=== PATIENT | male | born 1940 | race Caucasian/White ===

== ENCOUNTER 2017-11-01 13:05 | Emergency (ER) | payer MEDICARE | END 2017-11-01 14:38 | disposition home or self-care (01) | LOC: M ED 13:05 | DX: H11.441 Conjunctival cysts, right eye (principal); I10 Essential (primary) hypertension; J44.9 Chronic obstructive pulmonary disease, unspecified; K21.9 Gastro-esophageal reflux disease without esophagitis; Z88.1 Allergy status to other antibiotic agents; F17.210 Nicotine dependence, cigarettes, uncomplicated | CPT/HCPCS: 99283 ==

== ENCOUNTER 2020-04-06 03:28 | Emergency (ER) | payer MEDICARE, SELFPAY ==
[~2020-04-06] VITALS: Ht 170.2 cm; Wt 45.5 kg
[~2020-04-06 03:28] MED LIST: ALBU0.084 INH; ALBUPOW9 XX; BENZ100C5 PO; CLOP75TA2 PO; ESCI10TA16; LOPR50TA PO; NITR0.4S SL; NORCOBULK PO; PAXI10TA2 PO; PRED20TA PO; PROT1TAB2 PO; VENTAER IN; ZEST2.5T3 PO; vitamin e PO
[2020-04-06] MEDS ORDERED: HEPARIN SOD (PORCINE) 5000UNITS/ML 1ML VIAL/SYRINGE IV ONE ×3 (04:00→04:45)
[2020-04-06] MEDS ORDERED: CLOPIDOGREL 300 MG TAB (PLAVIX) PO STA (04:11)
[2020-04-06 04:12] LABS: BASO % 0.1 % (0.0-1.0); EOS # 0.1 10^3/uL (0.0-0.5); EOS % 0.7 % (0.0-3.0); HEMATOCRIT 45.3 % (42.0-52.0); HEMOGLOBIN 13.4 g/dl (13.5-17.5); LYMPH # 1.9 10^3/uL (1.5-5.0); MEAN CORPUSCULAR HEMOGLOBIN 29.5 pg (27.0-33.0); MEAN CORPUSCULAR HGB CONC 29.6 g/dl (32.0-36.5); MEAN CORPUSCULAR VOLUME 99.8 fl (80.0-96.0); MONO # 0.7 10^3/uL (0.0-0.8); MONO % 6.9 % (0.0-5.0); NEUTROPHILS # 7.7 10^3/uL (1.5-8.5); NEUTROPHILS % 73.8 % (36.0-66.0); PLATELET COUNT, AUTOMATED 286 10^3/uL (150-450); RED BLOOD COUNT 4.54 10^6/uL (4.30-6.10); WHITE BLOOD COUNT 10.4 10^3/uL (4.0-10.0)
[2020-04-06] MEDS ORDERED: HEPARIN DRIP 25,000 UNITS in IV 1 EA IV SCH ×2 (04:14→04:44)
[2020-04-06] MEDS ORDERED: ASPIRIN 81 MG CHEW TABLET PO ONE (04:15)
[2020-04-06] MEDS ORDERED: HEPARIN SOD (PORCINE) 5000UNITS/ML 1ML VIAL/SYRINGE IV PRN ×2 (04:15→04:45)
[2020-04-06] MEDS ORDERED: TENECTEPLASE 50 MG KIT (TNKase) (J3101 PER 1MG) IV ONE (04:15)
[2020-04-06] MEDS: MORPHINE 2 MG/ML 1ML VIAL (J2270) IV PRN ×2 (04:17→04:46)
[2020-04-06] MEDS: NITROGLYCERIN 0.4 MG SUBL TABLET SL PRN ×3 (04:18→04:34)
[2020-04-06] MEDS ORDERED: TENECTEPLASE 50 MG KIT (TNKase) (J3101 PER 1MG) As Ordered ONE (04:19)
[2020-04-06 04:32] LABS: INR 0.93; PROTHROMBIN TIME 12.7 SECONDS (12.5-14.3)
[2020-04-06 04:33] LABS: PARTIAL THROMBOPLASTIN TIME 34.3 SECONDS (24.2-38.5)
[2020-04-06 04:34] VITALS: BP 114/81
[2020-04-06 04:55] LABS: ALBUMIN 2.2 GM/DL (3.2-5.2); ALT/SGPT < 6 U/L (12-78); BILIRUBIN,DIRECT 0.1 MG/DL (0.0-0.2); BILIRUBIN,TOTAL 0.4 MG/DL (0.2-1.0); BLOOD UREA NITROGEN 12 MG/DL (7-18); CALCIUM LEVEL 5.2 MG/DL (8.8-10.2); CARBON DIOXIDE LEVEL 26 MEQ/L (21-32); CHLORIDE LEVEL 121 MEQ/L (98-107); CK-MB VALUE MASS 25.2 NG/ML (<3.6); CPK CREATINE PHOSPHOKINASE 141 U/L (39-308); CREATININE FOR GFR 0.31 MG/DL (0.70-1.30); GLOMERULAR FILTRATION RATE > 60.0 (>42); GLUCOSE, FASTING 90 MG/DL (70-100); LIPASE 93 U/L (73-393); MB/CK RELATIVE INDEX 17.87 (< OR =4); POTASSIUM SERUM 2.8 MEQ/L (3.5-5.1); SODIUM LEVEL 151 MEQ/L (136-145); THYROID STIMULATING HORMONE 0.371 uIU/ML (0.358-3.740); TOTAL PROTEIN 3.7 GM/DL (6.4-8.2); TROPONIN I 3.44 NG/ML (< 0.10)
[2020-04-06 05:10] VITALS: BP 138/79
--- NOTE | 2020-04-06 05:25 | REPVR ---
PROCEDURE INFORMATION: Exam: XR Chest, 1 View Exam date and time: 04/06/2020 4:25 AM Age: 79 years old Clinical indication: Other: Chest pain TECHNIQUE: Imaging protocol: XR of the chest Views: 1 view. COMPARISON: CR Chest, 1 view 01/31/2017 3:34 AM FINDINGS: Lungs: Hyperinflated lungs representing COPD. Pleural space: In the right CP angle, and adjacent right lateral chest wall there is asymmetrical lucency new from prior study, pneumothorax cannot be completely excluded, further evaluation with decubitus view right-sided up is recommended. Heart/Mediastinum: Unremarkable. No cardiomegaly. Bones/joints: Unremarkable. IMPRESSION: In the right CP angle, and adjacent right lateral chest wall there is asymmetrical lucency new from prior study, pneumothorax cannot be completely excluded, further evaluation with decubitus view right-sided up is recommended. Electronically signed by: Shante Scott On 04/06/2020 05:25:37 AM
--- NOTE | 2020-04-06 13:36 | ECGEPIP ---
[facility] - ED Test Date: 2020-04-06 Pat Name: LISA MELTON Department: Room: - Gender: Male Script Writer: peng : 1940 Requested By: STEPHANIE Davalos Order Number: [id number] Reading MD: Cassandra Luz Measurements Intervals [place] Rate: 110 P: 82 MA: 131 QRS: -73 QRSD: 76 T: 84 QT: 290 QTc: 392 Interpretive Statements SINUS TACHYCARDIA LEFT ATRIAL ENLARGEMENT LOW QRS VOLTAGE IN PRECORDIAL LEADS POSSIBLE RIGHT VENTRICULAR CONDUCTION DELAY LEFT ANTERIOR FASCICULAR BLOCK ANTERIOR ACUTE IN Electronically Signed on 04-06-2020 13:36:24 EST by Cassandra Luz
== END 2020-04-06 05:14 | disposition short-term general hospital (02) ==
LOC: M ED 03:28
DX: I21.09 ST elevation (STEMI) myocardial infarction involving other coronary artery of anterior wall (principal); I10 Essential (primary) hypertension; J44.9 Chronic obstructive pulmonary disease, unspecified; Z99.81 Dependence on supplemental oxygen; K21.9 Gastro-esophageal reflux disease without esophagitis; Z85.46 Personal history of malignant neoplasm of prostate; Z87.440 Personal history of urinary (tract) infections; F17.210 Nicotine dependence, cigarettes, uncomplicated; Z88.1 Allergy status to other antibiotic agents
CPT/HCPCS: 71045; 80048; 80076; 82550; 82553; 83690; 84443; 84484; 85025; 85610; 85730; 93005; 93041; 94760; 96374; 96375; 96376; 99285; J1644; J2270; J3101; U0002

== ENCOUNTER 2020-05-11 14:50 | Emergency (ER) | payer MEDICARE ==
[~2020-05-11] VITALS: Ht 170.2 cm; Wt 47.7 kg
--- OUTSIDE RECORDS SUMMARY | 2020-05-11 14:56 | CCD ---
Author Author [facility] Organization [facility] Address Unknown Phone Unavailable Care Team Providers Care Mantel Craftsman Name Role Phone Ivan Crowley MD Unavailable Unavailable Ivan Crowley MD Unavailable Unavailable Ivan Crowley MD Unavailable Unavailable Ivan Crowley MD Unavailable Unavailable Ivan Crowley MD Unavailable Unavailable Ivan Crowley MD Unavailable Unavailable Ivan Crowley MD Unavailable Unavailable Ivan Crowley MD Unavailable Unavailable Ivan Crowley MD Unavailable Unavailable Ivan Crowley MD Unavailable Unavailable Ivan Crowley MD Unavailable Unavailable Ivan Crowley MD Unavailable Unavailable Ivan Crowley MD Unavailable Unavailable Ivan Crowley MD Unavailable Unavailable Ivan Crowley MD Unavailable Unavailable Ivan Crowley MD Unavailable Unavailable Ivan Crowley MD Unavailable Unavailable Ivan Crowley MD Unavailable Unavailable Ivan Crowley MD Unavailable Unavailable Ivan Crowley MD Unavailable Unavailable Ivan Crowley MD Unavailable Unavailable Ivan Crowley MD Unavailable Unavailable Ivan Crowley MD Unavailable Unavailable Ivan Crowley MD Unavailable Unavailable Ivan Crowley MD Unavailable Unavailable Ivan Crowley MD Unavailable Unavailable Ivan Crowley MD Unavailable Unavailable Ivan Crowley MD Unavailable Unavailable Ivan Crowley MD Unavailable Unavailable Ivan Crowley MD Unavailable Unavailable Ivan Crowley MD Unavailable Unavailable Ivan Crowley MD Unavailable Unavailable Ivan Crowley MD Unavailable Unavailable Ivan Crowley MD Unavailable Unavailable Ivan Crowley MD Unavailable Unavailable Ivan Crowley MD Unavailable Unavailable Ivan Crowley MD Unavailable Unavailable Ivan Crowley MD Unavailable Unavailable Ivan Crowley MD Unavailable Unavailable Ivan Crowley MD Unavailable Unavailable Ivan Crowley MD Unavailable Unavailable Ivan Crowley MD Unavailable Unavailable Ivan Crowley MD Unavailable Unavailable Ivan Crowley MD Unavailable Unavailable Ivan Crowley MD Unavailable Unavailable Ivan Crowley MD Unavailable Unavailable Ivan Crowley MD Unavailable Unavailable Ivan Crowley MD Unavailable Unavailable Ivan Crowley MD Unavailable Unavailable Ivan Crowley MD Unavailable Unavailable Ivan Crowley MD Unavailable Unavailable Ivan Crowley MD Unavailable Unavailable Ivan Crowley MD Unavailable Unavailable Ivan Crowley MD Unavailable Unavailable Ivan Crowley MD Unavailable Unavailable Ivan Crowley MD Unavailable Unavailable Ivan Crowley MD Unavailable Unavailable Ivan Crowley MD Unavailable Unavailable MALINDA FOLEY Unavailable Unavailable MALINDA FOLEY Unavailable Unavailable MALINDA FOLEY Unavailable Unavailable MALINDA FOLEY Unavailable Unavailable MALINDA FOLEY Unavailable Unavailable MALINDA FOLEY Unavailable Unavailable Verbeck Jr, Perquimans Ronak PA Unavailable Unavailable Verbeck Jr, Perquimans Ronak PA Unavailable Unavailable Verbeck Jr, Perquimans Ronak PA Unavailable Unavailable Verbeck Jr, Perquimans Ronak PA Unavailable Unavailable Verbeck Jr, Perquimans Ronak PA Unavailable Unavailable Verbeck Jr, Perquimans Ronak PA Unavailable Unavailable Verbeck Jr, Perquimans Ronak PA Unavailable Unavailable Verbeck Jr, Perquimans Ronak PA Unavailable Unavailable Verbeck Jr, Jaziel Ronak PA Unavailable Unavailable Verbeck Jr, Perquimans Ronak PA Unavailable Unavailable Verbeck Jr, Perquimans Ronak PA Unavailable Unavailable Verbeck Jr, Perquimans Ronak PA Unavailable Unavailable Verbeck Jr, Perquimans Ronak PA Unavailable Unavailable Verbeck Jr, Jaziel Ronak PA Unavailable Unavailable Verbeck Jr, Perquimans Ronak PA Unavailable Unavailable Verbeck Jr, Jaziel Ronak PA Unavailable Unavailable Verbeck Jr, Perquimans Ronak PA Unavailable Unavailable Verbeck Jr, Perquimans Ronak PA Unavailable Unavailable Verbeck Jr, Perquimans Ronak PA Unavailable Unavailable Verbeck Jr, Perquimans Ronak PA Unavailable Unavailable Verbeck Jr, Perquimans Ronak PA Unavailable Unavailable Verbeck Jr, Perquimans Ronak PA Unavailable Unavailable Verbeck Jr, Perquimans Ronak PA Unavailable Unavailable Verbeck Jr, Perquimans Ronak PA Unavailable Unavailable Verbeck Jr, Perquimans Ronak PA Unavailable Unavailable Verbeck Jr, Perquimans Ronak PA Unavailable Unavailable Verbeck Jr, Perquimans Ronak PA Unavailable Unavailable Verbeck Jr, Jaziel Ronak PA Unavailable Unavailable Verbeck Jr, Perquimans Ronak PA Unavailable Unavailable Verbeck Jr, Jaziel Ronak PA Unavailable Unavailable Verbeck Jr, Perquimans Ronak PA Unavailable Unavailable Verbeck Jr, Perquimans Ronak PA Unavailable Unavailable Verbeck Jr, Jaziel Ronak PA Unavailable Unavailable Re-disclosure Warning The records that you are about to access may contain information from federally-assisted alcohol or drug abuse programs. If such information is present, then the following federally mandated warning applies: This information has been disclosed to you from records protected by federal confidentiality rules (42 CFR part 2). The federal rules prohibit you from making any further disclosure of this information unless further disclosure is expressly permitted by the written consent of the person to whom it pertains or as otherwise permitted by 42 CFR part 2. A general authorization for the release of medical or other information is NOT sufficient for this purpose. The Federal rules restrict any use of the information to criminally investigate or prosecute any alcohol or drug abuse patient.The records that you are about to access may contain highly sensitive health information, the redisclosure of which is protected by Article 27-F of the [facility] Public Health law. If you continue you may have access to information: Regarding HIV / AIDS; Provided by facilities licensed or operated by the [facility] Office of Mental Health; or Provided by the [facility] Office for People With Developmental Disabilities. If such information is present, then the following [facility] mandated warning applies: This information has been disclosed to you from confidential records which are protected by state law. State law prohibits you from making any further disclosure of this information without the specific written consent of the person to whom it pertains, or as otherwise permitted by law. Any unauthorized further disclosure in violation of state law may result in a fine or care home sentence or both. A general authorization for the release of medical or other information is NOT sufficient authorization for further disc losure. Allergies and Adverse Reactions Type Description Substance Reaction Status Data Source(s ) Propensity to adverse reactions TAMSULOSIN HCL Tamsulosin Hcl Shortness Of Breath High Active [facility] High Propensity to adverse reactions BEE VENOM Honey bee venom Active [facility] Family History Family Member Name Family Member Gender Family Member Status Date o f Status Description Data Source(s) Unknown Male Problem [facility] ([facility] () Encounters Encounter Providers Location Date Indications Data Source(s ) Outpatient Attender: Ivan AKHTAR.VISHAL-SJSONIA 04/07 12:00:00 AM EST - 04/19/2020 01:53:07 PM EST [facility] Inpatient Attender: ROSALINE FOLEYAdmitter: ROSALINE FOLEY ES1 -[id number] 04/06/2020 07:48:51 AM EST - 04/09/2020 03:11:00 PM EST [facility] Patient discharged. Outpatient Attender: Ronak Camacho [facility] Office 12/2019 10:00:00 AM EDT MEDMICHAEL ([facility] Immunizations Vaccine Date Status Description Data Source(s) New in 2011. IIV4 04/06/2020 12:00:00 AM EST completed Fl u Vaccine =>6MOS Quad Pres-Free 04/06/2020 (Deferred: Patient Refused) [facility] Deferred: Patient Refused pneumococcal polysaccharide PPV23 04/06/2020 12:00:00 AM EST com pleted Pneumococcal Polysaccharide (aka Pneumovax 23) 04/06/2020 () [facility] Medications Medication Brand Name Start Date Product Form Dose Route Admi nistrative Instructions Pharmacy Instructions Status Indications Reaction Description Data Source(s) 24 HR Nicotine 0.583 MG/HR Transdermal Patch nicotine (NICODERM CQ) 14 MG/24HR nicotine (NICODERM CQ) 14 MG/24HR 04/19/2020 12:00:00 AM EST 1 { patch} Transdermal active Place 1 patch on t he skin daily [facility] Albuterol 0.833 MG/ML / Ipratropium Brom anna 0.167 MG/ML Inhalant Solution ipratropium-albuterol (DUO-NEB) 0.5-2.5 mg/mL nebulizer ipratropium-albuterol (DUO-NEB) 0.5-2.5 mg/mL nebulizer 04/14/2020 12:00:00 AM EST active [facility] Aspirin 81 MG Chewable Tablet aspirin 81 MG chewable t ablet aspirin 81 MG chewable tablet 04/10/2020 12:00:00 AM EST 81 mg Oral ac tive Chew 1 tablet (81 mg total) daily [facility] clopidogrel 75 MG Oral Tablet clopidogrel (PLAVIX) 75 MG tablet clopidogrel (PLAVIX) 75 MG tablet 04/10/2020 12:00:00 AM EST 75 mg Oral active Take 1 tablet (75 mg total) by mouth daily [facility] 25 mg 04/09/2020 12:00:00 AM EST tablet 60 TAKE ONE TABLET BY MOUTH TWICE A DAY TAKE ONE TABLET BY MOUTH TWICE A DAY SOLD: 04/09/2020 [facility] atorvastatin 40 MG Oral Tablet ATORVASTATIN CALCIUM 04/09/2020 1 2:00:00 AM EST tablet 30 TAKE ONE TABLET BY MOUTH NIGHTLY TAKE ONE TABLET BY MOUTH NIGHTLY SOLD: 04/09/2020 [facility] 0.4 mg 04/09/2020 12:00:00 AM EST tablet, sublingual [address] PLACE ONE TABLET UNDER THE TONGUE EVERY 5 MINUTES NEEDED FOR CHEST PAIN PLACE ONE TABLET UNDER THE TONGUE EVERY 5 MINUTES NEEDED FOR CHEST PAIN SOLD: 04/09/2020 [facility] atorvastatin 40 MG Oral Tablet atorvastatin (LIPITOR) 40 MG tablet atorvastatin (LIPITOR) 40 MG tablet 04/09/2020 12:00:00 AM EST 40 mg Oral active Take 1 tablet (40 mg total) by mouth nightly [facility] albuterol (PROVENTIL HFA;VENTOLIN HFA) 108 (90 Base) M CG/ACT inhaler 4323-5145-01 04/09/2020 12:00:00 AM EST 2 {puff} Inhalation active Inhale 2 puffs every 4 (four) hours as needed for wheezing [facility] Nitroglycerin 0.4 MG Sublingual Tablet n itroglycerin (NITROSTAT) 0.4 MG SL tablet nitroglycerin (NITROSTAT) 0.4 MG SL tablet 04/09/2020 12:00:00 A M EST 0.[address] 1 t ablet (0.4 mg total) under the tongue every 5 (five) minutes as needed for chest pain [facility] Metoprolol Tartrate 25 MG Oral Tablet me toprolol tartrate (LOPRESSOR) 25 MG tablet metoprolol tartrate (LOPRESSOR) 25 MG tablet 04/09/2020 12:0 0:00 AM EST 25 mg Oral active Take 1 tablet (2 5 mg total) by mouth 2 (two) times a day [facility] 90 mcg/actuation 04/09/2020 12:00:00 AM EST HFA aerosol inha ler 8 INHALE TWO PUFFS BY MOUTH EVERY 4 HOURS NEEDED FOR WHEEZING INHALE TWO PUFFS BY MOUTH EVERY 4 HOURS NEEDED FOR WHEEZING SOLD: 04/09/2020 [facility] 75 mg 04/09/2020 12:00:00 AM EST tablet 30 TAKE ONE TABLET BY MOUTH EVERY DAY TAKE ONE TABLET BY MOUTH EVERY DAY SOLD: 04/09/2020 [facility] Metoprolol Tartrate 25 MG Oral Tablet me toprolol tartrate (LOPRESSOR) tablet 25 mg metoprolol tartrate (LOPRESSOR) tablet 25 mg 04/08/2020 09:00:00 PM EST 25 mg Oral active 25 mg, Ora l, 2 times daily, First dose on Fri04/08/20 at 2100 [facility] Medication administered onsite atorvastatin 40 MG Oral Tablet atorvastatin (LIPITOR) tablet 40 mg atorvastatin (LIPITOR) tablet 40 mg 04/07/2020 09:00:00 PM EST 40 mg Oral active 40 mg, Oral, Nightly, First dose on Fri04/07/20 at 2100 [facility] Medication administered onsite clopidogrel 75 MG Oral Tablet clopidogrel (PLAVIX) tab let 75 mg clopidogrel (PLAVIX) tablet 75 mg 04/07/2020 09:00:00 AM EST 75 mg Oral active 75 mg, Oral, Daily, First dose on Fri04/07/20 at 0900 [facility] Medication administered onsite atorvastatin 80 MG Oral Tablet atorvastatin (LIPITOR) tablet 80 mg atorvastatin (LIPITOR) tablet 80 mg 04/06/2020 09:00:00 PM EST 80 mg Oral aborted 80 mg, Oral, Nightly, First dose on [facility] 04/06/20 at 2100 [facility] Medication administered onsite Albuterol 0.833 MG/ML / Ipratropium Brom anna 0.167 MG/ML Inhalant Solution ipratropium-albuterol (DUO-NEB) 0.5-2.5 mg/mL nebulizer solution 3 mL ipratropium-albuterol (DUO-NEB) 0.5-2.5 mg/mL nebulizer solution 3 mL 04/06/2020 02:00:00 PM EST 3 mL Inhalation active 3 mL, Inhalation, 3 times daily, First dose on [facility] 04/06/20 at 1400 [facility] Medication administered onsite Metoprolol Tartrate 25 MG Oral Tablet me toprolol tartrate (LOPRESSOR) tablet 12.5 mg metoprolol tartrate (LOPRESSOR) tablet 12.5 mg 020 12:00:00 PM EST 12.5 mg Oral aborted 12.5 mg, Oral, 2 times daily, First dose on [facility] 04/06/20 at 1200 [facility] Medication administered onsite Albuterol 0.83 MG/ML Inhalant Solution a lbuterol (PROVENTIL) nebulizer solution 2.5 mg albuterol (PROVENTIL) nebulizer solution 2.5 mg 2019 11:19:45 AM EST 2.5 mg active 2.5 mg, Nebulization, Every 2 hour PRN, wheezing, shortness of breath, Starting [facility] 04/06/20 at 1119 [facility] Medication administered onsite sodium chloride 0.9% (NS) infusion 9944-7363-10 04/06/2020 10:00:00 AM EST 100 mL/h Intravenous aborted at 100 m L/hr, 100 mL/hr, Intravenous, Continuous, Starting [facility] 04/06/20 at 1000, Pre-op
Start two hours prior to scheduled start time
[facility] Medication administered onsite 500 ML heparin sodium, porcine 50 UNT/ML Injection heparin infusion 25,000 units in 500 mL 0.45% NaCl heparin infusion 25,000 units in 500 mL 0.45% NaCl 04/06/2020 10:00:00 AM EST 12 U/kg/h Intravenous aborted 12 Units/kg/hr 63.5 kg (15.24 mL/hr, rounded to 15.2 mL/hr), Intravenous, at 15.2 mL/hr, Continuous, Starting [facility] 04/06/20 at 1000
For Cardiac/BridgeaPTT (seconds) Heparin Dose (weight based)< 34 Bolus: 60 units/kg IV (Maximum bolus: 5,000 units) and increase infusion 3 units/kg/hr IV34 - 50 Bolus: 30 units/kg IV (Maximum bolus: 5,000 units) and increase infusion 2 units/kg/hr IV50.1 - 58 No bolus. Increase infusion 1 unit/kg/hr IV58.1 - 87 Therapeutic, No Jqpeyd69.1 - 97 Decrease infusion 1 unit/kg/hr IV 97.1 - 110Hold infusion for 30 minutes & decrease infusion 2 units/kg/hr IV> 110 Call MD if patient is bleeding. Hold infusion for 60 minutes & decrease infusion 3 units/kg/hr IVInitial heparin IV infusion rate:Do not exceed 1000 units/hr or 12 units/kg/hr initially (whichever is less)Infuse this medication only through single port tubing (SmartSite Infusion Set ref [id number]). Medication and tubing is to be discarded if infusion off for 4 hours.
[facility] Medication administered onsite Acetaminophen 325 MG Oral Tablet acetaminophen (TYLENO L) 325 MG tablet 650 mg acetaminophen (TYLENOL) 325 MG tablet 650 mg 04/06/2020 09:23:03 AM EST 650 mg Oral active 650 mg, Or al, Every 4 hours PRN, headaches, and non cardiac pain, Starting [facility] 04/06/20 at 0923, Pre-op
"Maximum dose of acetaminophen is 4,000 mg from all sources in 24 hours."
[facility] Medication administered onsite potassium chloride (KLOR-CON) packet 40 mEq 0199-7442-83 04/06/2020 09:00:00 AM EST 40 meq Oral completed 40 mEq , Oral, Once, [facility] 04/06/20 at 0900, For 1 dose [facility] Medication administered onsite 500 ML heparin sodium, porcine 50 UNT/ML Injection heparin infusion 25,000 units in 500 mL 0.45% NaCl heparin infusion 25,000 units in 500 mL 0.45% NaCl 04/06/2020 09:00:00 AM EST 12 U/kg/h Intravenous aborted 12 Units/kg/hr, Intravenous, Continuous, Starting [facility] 04/06/20 at 0900
For Cardiac/BridgeaPTT (seconds) Heparin Dose (weight based)< 34 Bolus: 60 units/kg IV (Maximum bolus: 5,000 units) and increase infusion 3 units/kg/hr IV34 - 50 Bolus: 30 units/kg IV (Maximum bolus: 5,000 units) and increase infusion 2 units/kg/hr IV50.1 - 58 No bolus. Increase infusion 1 unit/kg/hr IV58.1 - 87 Therapeutic, No Nnwuvz14.1 - 97 Decrease infusion 1 unit/kg/hr IV 97.1 - 110Hold infusion for 30 minutes & decrease infusion 2 units/kg/hr IV> 110 Call MD if patient is bleeding. Hold infusion for 60 minutes & decrease infusion 3 units/kg/hr IVInitial heparin IV infusion rate:Do not exceed 1000 units/hr or 12 units/kg/hr initially (whichever is less)Infuse this medication only through single port tubing (SmartSite Infusion Set ref [id number]). Medication and tubing is to be discarded if infusion off for 4 hours.
[facility] Medication administered onsite Aspirin 81 MG Chewable Tablet aspirin chewable tablet 81 mg aspirin chewable tablet 81 mg 04/06/2020 09:00:00 AM EST 81 mg Oral activ e 81 mg, Oral, Daily, First dose on [facility] 04/06/20 at 0900 [facility] Medication administered onsite Nitroglycerin 0.4 MG Sublingual Tablet n itroglycerin (NITROSTAT) SL tablet 0.4 mg nitroglycerin (NITROSTAT) SL tablet 0.4 mg 04/06/2020 08:05:03 A M EST 0.4 mg Sublingual active 0.4 mg, S ublingual, Every 5 min PRN, chest pain, Starting [facility] 04/06/20 at 0805
May administer up to 3 doses per episode.
[facility] Medication administered onsite 1 ML heparin sodium, porcine 1000 UNT/ML Injection heparin (porcine) injection 100-5,000 Units heparin (porcine) injection 100-5,000 Units 04/06/2020 08:02:04 AM EST Intravenous active 100- 5,000 Units, Intravenous, As needed, other, Starting [facility] 04/06/20 at 0802
Round dose to nearest 100 unitsaPTT:< 34 Bolus: 60 units/kg IV (Maximum bolus: 5,000 units) 34 - 50 Bolus: 30 units/kg IV (Maximum bolus: 5,000 units)
[facility] Medication administered onsite Tamsulosin hydrochloride 0.4 MG Oral Capsule tamsulosi n (FLOMAX) 0.4 MG CAPS tamsulosin (FLOMAX) 0.4 MG CAPS 0.4 mg Oral aborte d Take 0.4 mg by mouth daily [facility] Insurance Providers Payer name Policy type / Coverage type Policy ID Covered constitution party ID Covered constitution party's relationship to de paz Policy [place] Plan Information AETNA MEDICARE [id number] SP [id number] AETNA MEDICARE [id number] Susana MEBRY 7XV MEDICARE C [id number] S [id number] AETNA MEDICARE Medicare [id number] MEDICARE [id number] SP [id number] SELF PAY ONLY [id number] SP [id number] MEDICARE COMPLETE [id number] SP [id number] [facility] Commercial [id number] Self [id number] MEDICARE COMPLETE-[facility] O [id number] S [id number] MEDICARE COMPLETE [id number] SP [id number] Problems, Conditions, and Diagnoses Code Display Name Description Problem Type Effective Dates Data Source(s) E78.00 Pure hypercholesterolemia Pure hypercholesterolemia 64 [id number] 04/19/2020 12:00:00 AM EST [facility] I25.119 Coronary artery disease invo lving [place] coronary artery of [place]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 pectoris Coronary artery disease involving [place] coronary artery of [place]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 pectoris [id number] 04/19/2020 12:00:00 AM EST [facility] I10 HTN (hypertension) HTN (hypertension) [id number] 0 12:00:00 AM [facility] J44.9 COPD (chronic obstructive pulmonary dise ase) COPD (chronic obstructive pulmonary disease) [id number] 04/06/2020 12:00:00 AM [facility] I21.09 Acute anterior wall KS Acute anterior wall KS [id number] 04/06/2020 12:00:00 AM [facility] E78.00 Pure hypercholesterolemia, unspecified P ure hypercholesterolemia, unspecified Diagnosis 04/19/2020 01:09:04 PM [facility] I10 Essential (primary) hypertension Essential (primary) h ypertension Diagnosis 04/19/2020 01:09:04 PM [facility] I25.119 Atherosclerotic heart diseas e of [place] coronary artery with unspecified angina pectoris Atherosclerotic heart disease of [place] Diagnosis 04/19/2020 01:09:04 PM [facility] J43.9 Emphysema, unspecified Emphysema, unspecified Diagnosi s 04/06/2020 07:48:51 AM [facility] I21.09 ST elevation (STEMI) myocard ial infarction involving other coronary artery of anterior wall ST elevation (STEMI) myocardial infarcti Diagnosis 04/06/2020 07:48:51 AM [facility] I21.3 ST elevation (STEMI) myocardial infarcti on of unspecified site ST elevation (STEMI) myocardial infarcti Diagnosis 04/06/2020 07:48:51 AM [facility] Surgeries/Procedures Procedure Description Date Indications Data Source(s) ECG ROUTINE ECG W/LEAST 12 LDS W/I&R POCT AMB EKG Routine 04/19/2020 1:31 PM EST Coronary artery disease involving [place] coronary artery of [place]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 pectoris 04/19/2020 06:31:00 PM EST Coronary dylan ry disease involving [place] coronary artery of [place]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 pectoris [facility] Coronary artery disease involving [place] coronary artery of [place]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 pectoris BLOOD COUNT COMPLETE AUTOMATED CBC Routine 04/08/2020 4:31 A M EST 04/08/2020 09:31:00 AM EST [facility] BASIC METABOLIC PANEL CALCIUM TOTAL BASIC METABOLIC PANEL Routi ne 04/08/2020 4:31 AM EST 04/08/2020 09:31:[address] [facility] ECHO TTHRC R-T 2D W/WOM-MODE COMPL SPEC&COLR DOP ECHOCARDIO GRAM TRANSTHORACIC Routine 04/07/2020 11:59 AM EST 04/07/2020 04:59:49 PM [facility] BLOOD COUNT COMPLETE AUTOMATED CBC Routine 04/07/2020 7:54 A M EST 04/07/2020 12:54:00 PM [facility] BASIC METABOLIC PANEL CALCIUM TOTAL BASIC METABOLIC PANEL Routi ne 04/07/2020 7:54 AM EST 04/07/2020 12:54:[address] [facility] TROPONIN QUANTITATIVE TROPONIN I STAT 04/06/2020 8:15 PM EST 04/07/2020 01:15:00 AM [facility] ECG ROUTINE ECG W/LEAST 12 LDS TRCG ONLY W/O I&R ECG 12-LEAD Routine 04/06/2020 12:16 PM EST 04/06/2020 05:16:[address] [facility] CMB CMB STAT 04/06/2020 11:47 AM EST 04/06/20 20 04:47:00 PM [facility] TROPONIN QUANTITATIVE TROPONIN I Routine 04/06/2020 11:47 AM EST 04/06/2020 04:47:00 PM [facility] MAGNESIUM MAGNESIUM Routine 04/06/2020 11:47 AM EST 04/06/2020 04:47:00 PM [facility] HEMOGLOBIN GLYCOSYLATED A1C HEMOGLOBIN A1C Routine 04/06/2020 11:47 AM EST 04/06/2020 04:47:00 PM [facility] CREATINE KINASE MB FRACTION ONLY CKMB Routine 04/06/2020 11:47 AM EST 04/06/2020 04:47:00 PM [facility] LIPID PANEL LIPID PANEL Routine 04/06/2020 11:47 AM EST 04/06/2020 04:47:00 PM EST [facility] BASIC METABOLIC PANEL CALCIUM TOTAL BASIC METABOLIC PANEL Routi ne 04/06/2020 11:47 AM EST 04/06/2020 04:47:00 PM EST [facility] THROMBOPLASTIN TIME PARTIAL PLASMA/WHOLE BLOOD APTT Routine 04/06/2020 9:35 AM EST 04/06/2020 02:35:00 PM EST [facility] PROTHROMBIN TIME PROTIME-INR Routine 04/06/2020 9:35 AM EST 04/06/2020 02:35:00 PM EST [facility] BLOOD COUNT COMPLETE AUTOMATED CBC Routine 04/06/2020 9:35 A M EST 04/06/2020 02:35:00 PM EST [facility] BASIC METABOLIC PANEL CALCIUM TOTAL BASIC METABOLIC PANEL Routi ne 04/06/2020 9:35 AM EST 04/06/2020 02:35:00 PM EST [facility] CARDIAC CATHETERIZATION CARDIAC CATHETERIZATION Routine 04/06/2020 9:02 AM EST Acute anterior wall KS 04/06/2020 02:02:15 PM EST Acute anterior wall KS [facility] Acute anterior wall [place] POC ACT POC ACT Routine 04/06/2020 8:40 AM EST 020 01:40:00 PM EST [facility] ECG ROUTINE ECG W/LEAST 12 LDS W/I&R ECG 12-LEAD Routine 04/06/2020 6:35 AM EST 04/06/2020 11:35:06 AM EST [facility] Results ID Date Data Source [id number] 04/09/2020 01:44:15 PM [facility] Name Date of Age Gend*PT [id number] [place] Alexander Jailyn 1940 79 years M IPPT Location Admission Date/Time Visit ID Attending [id number] 04/06/20 0748 --- Rosaline Foley MD([id number]) EPI ID CSN Admitting Provider [id number] Rosaline Foley MD([id number]) Attestation signed by Rosaline Foley MD at 04/09/2020 1:44 PMI saw and evaluated the patient and reviewed Dee Singh's note. I agreewith the history, physical and medical decision making.Signature: KORY Jamesate: April 09, 2020Time: 1:43 PM Physician Discharge Summary Alexander Glaser JoellenN: [id number] date: 04/06/2020Attending Physician: Rosaline Foley MDAdmission Diagnosis: Acute anterior wall MISecondary Diagnoses: Principal Problem: Acute anterior wall MIActive Problems: COPD (chronic obstructive pulmonary disease) HTN (hypertension)Principle Procedures:1. LHC:1. Severe single-vessel coronary artery disease.2. Mid LAD has a 90% ulcerative stenosis. This is the culprit for his anteriorSTEMI. Accessible PCI with a 2.5 x 18 mm Xience drug-eluting stent. Seconddiagonal just proximal to the stent mildly jailed, but had KRYS-3 flow.3. After stent deployment in the mid LAD, there is a new hazy lesion justproximal to the stent most likely lies dissection. This was stented with a two5 x 8 mm Xience drug-eluting stent.4. Mild to moderate nonobstructive disease in the RCA.5. No complications, estimated blood loss minimal.Successful salvage left heart catheterization from the right radial after f ailedthrombolysis. Patient should be on dual antiplatelet therapy for at least at ayear. Aggressive medical therapy for his CAD risk factors.2. ECHO:1. Left ventricular cavity size is normal with mild increase in wallthickness.2. LV systolic function is lower limit of normal with resting estimatedejection fraction is 50-55 %.3. The left ventricular wall motion is abnormal as described consistent with aCAD.4. LV diastolic function is abnormal with elevated filling pressure.5. Left atrial size is mildly dilated.6. Estimated PA pressure is 42 mm hg .7. 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 Aortic valve is mildly sclerotic, no stenosis, mild aortic regurgitation .9. Ascending aorta mildly dilated measuring up to 4 cmIndication for Admission: This is a 79-year-old gentleman with severe COPD on 3L of O2 by nasal cannula at home 24 hours. He presented to [facility] with a 2-day history of intermittent chest discomfort. He describesmidsternal chest pressure and mild nausea. No other associated symptoms. EKGrevealed anterior wall ST elevation. He was given TNK at 4 am earlier todayalong with ASA, Plavix and heparin IV.. Transferred to [facility] for a urgentcardiac catheterization.On arrival he continued to have chest discomfort he reports is better butdescribes it as7/10 on the pain scale. EKG continues to show ST elevation in the anteriorleads. He was brought to the cardiac catheterization lab emergently.Cardiac catheterization revealed severe single-vessel coronary artery disease.Mid LAD with a 90% ulcerative stenosis. This is the culprit for his anteriorSTEMI. This was treated with a drug-eluting stent. Second diagonal justproximal to the stent mildly jailed but had a KRYS-3 flow. After stentappointment in the mid LAD there was a new hazy lesion just proximal to thesten.t this was stented as well with drug-eluting stents. There was mild tomoderate nonobstructive disease in the RCA.Alexander denies any known cardiac history including CAD KS or heart failure.Denies any orthopnea, PND, lower extremity edema, palpitations or syncope.Denies any other significant past medical history including DM, hyperlipidemia,seizures strokes or syncope. Denies blood in his stool or urine.He does report ports severe COPD on chronic O2 3 L at home. He typically cannotlie flat and has to sit up at least at a 45 degree angle.His only medication at home is albuterol nebulizer treatments. I called hispharmacy to verify this and this is true. He was on prednisone at one pointlast year. He tells me he stopped his Flomax because it was making him feelworse. He was not on any other medications.Quit smoking 6 months ago. Denies EtOH or recreational drugsHospital Course & Complications: [facility] followingemergent cardiac catheterization, see results above. He tolerated the theprocedure well and was initiated on guideline medical therapy. Peak [id number]. He was monitored on telemetry throughout his hospitalization. He underwentEcho, see results above. He had no further chest pain and tolerated allmedications. He was treated for COPD with nebulizer treatments. He wasini tiated on beta ulises which he also tolerated. He continued to improve andwas considered for discharge yesterday. He felt he was too weak to go home atthat time. He was seen and evaluated by physical therapy today and deemedstable for discharge to home. Dr Foley evaluated the patient today and agreedthe patient was stable for discharge. The patient was in agreement. Alldischarge instructions, limitations and medications were reviewed. Strictmedication and follow up compliance was reinforced. Follow up was arrange withDr Crowley. Of note, he was not initiated on Bong-I prior to discharge givenmarginal blood pressures. This can be considered as outpatient. All questionsanswered.Past Medical History:Past Medical History:Diagnosis Date COPD (chronic obstructive pulmonary disease) 04/06/2020 HTN (hypertension) 04/06/2020Most Recent Labs:BMP:Lab ResultsComponent Value Date NA 143 04/08/2020 K 4.3 04/08/2020 CL 104 04/08/2020 CO2 34 (H) 04/08/2020 ANIONGAP 5 (L) 04/08/2020 CALCIUM 8.8 04/08/2020 GLU 80 04/08/2020 BUN 24 04/08/2020 CREATININE 0.64 (L) 04/08/2020 GFRAA >60 04/08/2020 GFRNONAA >60 04/08/2020ardiac:Lab ResultsComponent Value Date TROPONINI 42.50 (HH) 04/06/2020CBC Brief:Lab ResultsComponent Value Date WBC 11.2 (H) 04/08/2020 HGB 12.8 (L) 04/08/2020 HCT 37.8 (L) 04/08/2020 PLT 211 04/08/2020Medications:Your medication listSTART taking these medications Instructions Last Dose Given Morning Afternoon Evening Bedtime As Neededalbuterol 108 (90 Base) MCG/ACT inhalerCommonly known as: PROVENTIL HFA;VENTOLIN HFA Inhale 2 puffs every 4 (four) hours as needed for wheezingaspirin 81 MG chewable tabletStart taking on: April 10, 2020 Chew 1 tablet (81 mg total) dailyatorvastatin 40 MG tabletCommonly known as: LIPITOR Take 1 tablet (40 mg total) by mouth nightlyclopidogrel 75 MG tabletCommonly known as: PLAVIXStart taking on: April 10, 2020 Take 1 tablet (75 mg total) by mouth dailymetoprolol tartrate 25 MG tabletCommonly known as: LOPRESSOR Take 1 tablet (25 mg total) by mouth 2 (two) times a daynitroglycerin 0.4 MG SL tabletCommonly known as: NITROSTAT Place 1 tablet (0.4 mg total) under the tongue every 5 (five) minutes as neededfor chest painCONTINUE taking these medications Instructions Last Dose Given Morning Afternoon Evening Bedtime As Neededpolyvinyl alcohol 1.4 % ophthalmic solutionCommonly known as: LIQUIFILM TEARS Administer 1-2 drops to both eyes nightly as needed for dry eyestamsulosin 0.4 MG CapsCommonly known as: FLOMAX Take 0.4 mg by mouth dailyWhere to Get Your MedicationsThese medications were sent to [facility] [id number] [place] [id number] albuterol 108 (90 Base) MCG/ACT inhaler aspirin 81 MG chewable tablet atorvastatin 40 MG tablet clopidogrel 75 MG tablet metoprolol tartrate 25 MG tablet nitroglycerin 0.4 MG SL tabletDischarge Exam:Vitals: Temp: [97.4 F-98.2 F] 98.2 FHeart Rate: [65-79] 72Resp: [16-21] 18BP: (104-139)/(64-75) 104/64Neck: NO JVPLungs: Diminished throughout, no rales or wheezesHeart: RRAbd: SOFT/NONTENDER/NO DISTENTIONExt : WARM/DRY/NO EDEMA RRA site healing well. (+) distal pulsesMultiple ecchymotic areas on BLEDischarged Condition: stableDisposition: Discharge to homeFollow Up: Dr Crowley, PCPSignature: DEE SINGH, NPDate: April 09, 2020Time: 12:50 PM Name Value Range Interpretation Code Description Data Kathy rce(s) Supporting Document(s) ID Date Data Source [id number] 04/08/2020 06:51:19 AM EST [facility] Name Value Range Interpretation Code Description Data [facility] rce(s) Supporting Document(s) SODIUM 143 mmol/L (136-145) [facility] POTASSIUM 4.3 mmol/L (3.6-5.2) [facility] CHLORIDE 104 mmol/L (100-108) [facility] CO2 34 mmol/L (22-31) H [facility] ANION GAP 5 mmol/L (7-16) L [facility] UREA NITROGEN 24 mg/dL (7-24) [facility] CREATININE 0.64 mg/dL (0.80-1.30) L [facility] BUN/CREAT RATIO 37.5 RATIO (10.0-20.0) H [facility] GLUCOSE 80 mg/dL (70-99) [facility] CALCIUM 8.8 mg/dL (8.4-10.2) [facility] GFR >60 ml/min/1.73m2 (>59) [facility] GFR ( AMER) >60 ml/min/1.73m2 (>59) [facility] GFR INTERPRETATION [facility] --NORMAL KIDNEY FUNCTION OR MILD DISEASE - GFR >OR= 60CHRONIC KIDNEY DISEASE - GFR 15 - 59RENAL FAILURE - GFR <15 Est. GFR calculation based on the MDRDstudy equation, which assumes a steadystate for creatinine. Est. GFR should notbe used for medication dosing. ID Date Data Source [id number] 04/08/2020 06:34:11 AM EST [facility] Name Value Range Interpretation Code Description Data Kathy rce(s) Supporting Document(s) WBC 11.2 10*3/uL (4.1-11.0) H [facility] RBC 4.10 10*6/uL (4.60-6.10) L [facility] HGB 12.8 g/dL (13.5-18.0) L [facility] HCT 37.8 % (41.0-53.0) L [facility] MCV 92.3 fL (80.0-95.0) [facility] MCH 31.3 pg (27.0-32.0) [facility] MCHC 33.9 g/dL (32.0-36.0) [facility] RDW 14.0 % (10.5-14.5) [facility] PLT 211 10*3/uL (150-450) [facility] MPV 8.3 fL (7.1-10.7) [facility] ID Date Data Source [id number] 04/07/2020 12:09:22 PM EST [facility] Name Value Range Interpretation Code Description Data Kathy rce(s) Supporting Document(s) &PDF [facility] FFFLPt6vRrEBAjGf08/VRJtmXMJeo9YvRXsjVLt4MVfsFILmM7SjuOciQRUOGxGwLsmQKP4FMClHC8dX 0b3 [file] ICAgICAgICAgICAgICAgICAgICAgICAgICAgICAgIC AgICAgICAgICAgICAgICAgICAgICAgICAgDQogICAgICAgICAgICAgICAgICAgICAgICAgICAgICAgIC AgICAgICAgICAgICAgICAgICAgICAgICAgICAgICAgICAgICAgICAgICAgICAgICAgICAgICAgICAgIC AgICAgICAgDQogICAgICAgICAgICAgICAgICAgICAg ICAgICAgICAgICAgICAgICAgICAgICAgICAgICAgICAgICAgICAgICAgICAgICAgICAgICAgICAgICAg ICAgICAgICAgICAgICAgICAgDQogICAgICAgICAgICAgICAgICAgICAgICAgICAgICAgICAgICAgICAg ICAgICAgICAgICAgICAgICAgICAgICAgICAgICAgIC AgICAgICAgICAgICAgICAgICAgICAgICAgICAgDQogICAgICAgICAgICAgICAgICAgICAgICAgICAgIC AgICAgICAgICAgICAgICAgICAgICAgICAgICAgICAgICAgICAgICAgICAgICAgICAgICAgICAgICAgIC AgICAgICAgICAgDQogICAgICAgICAgICAgICAgICAg ICAgICAgICAgICAgICAgICAgICAgICAgICAgICAgICAgICAgICAgICAgICAgICAgICAgICAgICAgICAg ICAgICAgICAgICAgICAgICAgICAgDQogICAgICAgICAgICAgICAgICAgICAgICAgICAgICAgICAgICAg ICAgICAgICAgICAgICAgICAgICAgICAgICAgICAgIC AgICAgICAgICAgICAgICAgICAgICAgICAgICAgICAgDQogICAgICAgICAgICAgICAgICAgICAgICAgIC AgICAgICAgICAgICAgICAgICAgICAgICAgICAgICAgICAgICAgICAgICAgICAgICAgICAgICAgICAgIC AgICAgICAgICAgICAgDQogICAgICAgICAgICAgICAg ICAgICAgICAgICAgICAgICAgICAgICAgICAgICAgICAgICAgICAgICAgICAgICAgICAgICAgICAgICAg ICAgICAgICAgICAgICAgICAgICAgICAgDQogICAgICAgICAgICAgICAgICAgICAgICAgICAgICAgICAg ICAgICAgICAgICAgICAgICAgICAgICAgICAgICAgIC DwSHVyAPJgCBXbPYJjEVIqEYMzLJUrJBIfTKNeBPQbPPCqBIn9J3biIAXuQKJdQY7hMDh7Tr1+DQoNCm XwRVH5huBuaF1NNJ8pu8RtCMmaOLTjx6FqPXl8KB0YWMAxUCcaAW9BLRskef9ZSMEyJFHiiVTIr0udVp MuZFU9HNNpJeoiES0OSJJyA4qrquCnNPPsZGSGBNvj GSARMAlpQUEJYIPgSPYjWqYdILcbRQ0Ne0OhhWP6MLn+Xp8JOB5lt9OjAAt2ZwYuPL4xjo8RXGfKKuHv X9W7gMFhX3C0HNyoQo9AWHExRVXwHFFpPVMWFBgiLI1GCB8iotK7PW9WhOPzUZWoHLVvhYEeITs6X43g zHNaZXtsEZ9QXRV+Renato+Ne2AJLNaLMPhBELyHkDfDJ GQHqAaX84dqPTbXNDbFZGmCWBzDw3YBRRfO8XkldSkeMcwqgYvRZAcOBCDLF6XOWtvjbAtvCUosEuvJE 14oClmDF0IOf0VGiFdGJ2kfi6DyJEtJo9CRTB9Gq7NETEgZENbCFPbMQB6DORrSzDbRQbfWNWoUGAaMX G6GMBtSRWnEL9QSnZhBTSpToguVMVyKMMrAHZwcf0G WHDrJPW0SSFeOaFhSTXzJZUxDGbbTAQdBDAiAJz0WEFhCONaHG0MFjXwCNDiHOQyATShDEQqWJDpas2F HLUlYTLlKfJ7MmImCEFzNJKcMPfbTCBnGGM6OEI1WFQlSBImAC6CNkVrNDRsMJDjTWUtECBtHNWjfb4U KHZhWQFbNiNnCFLvUPNrKDYzVFzgFLUwIYF8SiC5LS UlMSRhUK5PMjIjYPRlJPu6FnewCYTuNAAicj7STRIxTRSqUCY4NfOtMJIxDSSkWWrhHKUlRRAbBNDrTQ WbEBSnEA2LBpXdSCAbDBBgLpGfCHAuEUWkjg4LRVOjDWFdCSEuWmXgTIVgSUNhOGfpDCPkOZJhVmsmXD ZcDJAlGP9CLfJcZCWmPVG9DwSkTXTrHPNecb7SWEOn NMZzSDw6UxNjKTQkGDSeVPfxHRXeUUOaUoSoRBWmRWQzDU6FRyWcUWWrREB9EJjcIWRpCMJvvb0HANPa BFYbMeHhYyVcDTOfEEDsKXpwFGYtGNZ1PSQlBANfKCUdCT6PIbMtLKKjLXRdLdRzGTCjJYThmw6BLZPh ZLJgCXR7TABhMJQfJEJeCQnpOYIuOJV8NVW2KJUnUU MeEN4CVpIdWEHsYaR3YCZmGAHaJSRnnw8YYNQwXIIvLZD5VcNgOFRzNLVzJHgkDMNoZTL6EQsyFVQhMK PaDX0QCiOhRAKqFmS6SVwjYGCyFAAxta6JZULxLAHjRwFzSXNhTTMpSKImWSopICGfCBP7WrJ9WBCjWQ SbAQ6HRrXjSQVkMys7ChizLVBsSWJbhn7TYEIfTWT6 SNl5NoFwXXHeQIZlHKwyBKFuIID6JvB8AWScYWCbXO6KQuVbQEBxJKf9ABzaBUGcPUUmio4HEHZjVXD2 UhNxCUAoKOFvIQKvFQcmMQBaRIB9FWvfFSHqMRSzSN9FVcUrNYErWqPoRgslUWYsDQYpwi8WHGVsDHH0 RNduZSErOLLsHOJwOVowZLBmASF5ZJk1PJSjNJChYM 0EOuJoEYQqWlu0BUMjKZDnTYCfvu7RWWCqXVZ5WYB3PJRtKFDdIKJvNFo1fwYvmGYxMHv1JM7XZ6Woir KlEGSFMc0Sl606MTSsYBVnCd8BD3omJt3hMHTdCFRDXx8XNLm9MdV6OTL7FOTjAHxaB4ElHPLdWMc0Bd C0BMIvZBPdXkc+RIw1GHPqHuz3TkJ7OCI0OuYoARR5 JVBbJGE4JqEmSSFcIV9xFRKLZw9+TRdaaBIaaHizPHIGCwfkANI5GAduCVPFSq6H ID Date Data Source [id number] 04/07/2020 11:04:58 AM EST [facility] Name Value Range Interpretation Code Description Data Kathy rce(s) Supporting Document(s) SODIUM 141 mmol/L (136-145) [facility] POTASSIUM 4.7 mmol/L (3.6-5.2) [facility] CHLORIDE 103 mmol/L (100-108) [facility] CO2 31 mmol/L (22-31) [facility] ANION GAP 7 mmol/L (7-16) [facility] UREA NITROGEN 20 mg/dL (7-24) [facility] CREATININE 0.70 mg/dL (0.80-1.30) L [facility] BUN/CREAT RATIO 28.6 RATIO (10.0-20.0) H [facility] GLUCOSE 77 mg/dL (70-99) [facility] CALCIUM 8.8 mg/dL (8.4-10.2) [facility] GFR >60 ml/min/1.73m2 (>59) [facility] GFR ( AMER) >60 ml/min/1.73m2 (>59) [facility] GFR INTERPRETATION [facility] --NORMAL KIDNEY FUNCTION OR MILD DISEASE - GFR >OR= 60CHRONIC KIDNEY DISEASE - GFR 15 - 59RENAL FAILURE - GFR <15 Est. GFR calculation based on the MDRDstudy equation, which assumes a steadystate for creatinine. Est. GFR should notbe used for medication dosing. ID Date Data Source [id number] 04/07/2020 10:17:01 AM EST [facility] Name Value Range Interpretation Code Description Data Kathy rce(s) Supporting Document(s) WBC 12.3 10*3/uL (4.1-11.0) H [facility] RBC 4.05 10*6/uL (4.60-6.10) L [facility] HGB 12.5 g/dL (13.5-18.0) L [facility] HCT 37.4 % (41.0-53.0) L [facility] MCV 92.2 fL (80.0-95.0) [facility] MCH 30.9 pg (27.0-32.0) [facility] MCHC 33.5 g/dL (32.0-36.0) [facility] RDW 14.3 % (10.5-14.5) [facility] PLT 235 10*3/uL (150-450) [facility] MPV 8.4 fL (7.1-10.7) [facility] ID Date Data Source [id number] 04/06/2020 09:46:56 PM EST [facility] Name Value Range Interpretation Code Description Data Kathy rce(s) Supporting Document(s) TROPONIN I 42.50 ng/mL (<0.05) [facility] Less than 0.05: Myocardial injury unlike lyGreater than or equal to 0.05: Highly suggestive of myocardial injuryCorrelation with rise and/or fall ofserial troponins, clinical symptomsand ECG changes is necessary.ALERTED CRITICAL RESULT ENEDINA (60711) [place] [address] ON 04/06/20 [place] 2143 [place] [address] ID Date Data Source [id number] 04/06/2020 12:45:02 PM EST [facility] NT INFORMATIONPatient MRN Name Date of Age Gend*PT [id number] Alexander Cuenca 1940 79 years M IPPT Location Admission Date/Time Visit ID Attending [id number] 04/06/20 0748 --- Rosaline Foley MD([id number]) EPI ID CSN Admitting Provider [id number] Rosaline Foley MD([id number]) Attestation signed by Rosaline Foley MD at 04/06/2020 12:45 PMI saw and evaluated the patient and reviewed Lulu Jarrett's note. I agree withthe history, physical and medical decision making with the following additions,exceptions, and/or observations:Patient presented her earlier this morning with intermittent chest pain for 2days, and more consistent chest pain over the last 12 or so hours. He waseval[facility] at [facility] and was found to have an anterior STEMI.He was given thrombolytics, aspirin, Plavix, and a heparin drip and transferredhere for left heart catheterization. On arrival here the patient continued tohave ST elevations and chest pain consistent with failure of thrombolysis so hewas taken to the lab emergently. Placed 2 drug-eluting stents in his mid LAD.He is currently chest pain-free. He should continue dual antiplatelet therapywith aspirin and Plavix. We will start him on a high-dose high intensitystatin, and start a very low-dose beta-ulises. Will monitor for anyinteractions of his beta-ulises with his COPD. Echocardiogram is pending. Ifall goes well, patient can be discharged as early as April 08, 2020.Signature: KORY Jamesate: April 06, 2020Time: 12:41 PM --Cardiology History and PhysicalName: Alexander Cuenca Gender: maleDate of : 1940 Age: 79 yearsDate/Time of Admit: 04/06/2020 7:48 AM Code Status: Full CodePrimary Care ProviderReferring Physician: Dary PCPRosaline Foley [facility] Complaint: Chest discomfortHPI: This is a 79-year-old gentleman with severe COPD on 3 L of O2 by nasalcannula at home 24 hours. He presented to [facility] with a 2-dayhistory of intermittent chest discomfort. He describes midsternal chestpressure and mild nausea. No other associated symptoms. EKG revealed anteriorwall ST elevation. He was given TNK at 4 am e jhoana today along with ASA,Plavix and heparin IV.. Transferred to [facility] for a urgent cardiaccatheterization.On arrival he continued to have chest discomfort he reports is better butdescribes it as7/10 on the pain scale. EKG continues to show ST elevation in the anteriorleads. He was brought to the cardiac catheterization lab emergently.Cardiac catheterization revealed severe single- vessel coronary artery disease.Mid LAD with a 90% ulcerative stenosis. This is the culprit for his anteriorSTEMI. This was treated with a drug-eluting stent. Second diagonal justproximal to the stent mildly jailed but had a KRYS-3 flow. After stentappointment in the mid LAD there was a new hazy lesion just proximal to thesten.t this was stented as well with drug-eluting stents. There was mild tomoderate nonobstructive disease in the RCA.Alexander denies any known cardiac history including CAD KS or heart failure.Denies any orthopnea, PND, lower extremity edema, palpitations or syncope.Denies any other significant past medical history including DM, hyperlipidemia,seizures strokes or syncope. Denies blood in his stool or urine.He does report ports severe COPD on chronic O2 3 L at home. He typically cannotlie flat and has to sit up at least at a 45 degree angle.His only medication at home is albuterol nebulizer treatments. I called hispharmacy to verify this and this is true. He was on prednisone at one pointlast year. He tells me he stopped his Flomax because it was making him feelworse. He was not on any other medications.Quit smoking 6 months ago. Denies EtOH or recreational drugsCovid 19-Potassium 2.8Creatinine 0.3Troponin 3.44HistoryPast Medical History:Diagnosis Date COPD (chronic obstructive pulmonary disease) 04/06/2020 HTN (hypertension) 04/06/2020No past surgical history on file.Social HistorySocioeconomic History Marital status: Spouse name: Not on file Number of children: Not on file Years of education: Not on file Highest education level: Not on fileOccupational History Not on fileSocial Needs Financial resource strain: Not on file Food insecurity: Worry: Not on file Inability: Not on file Transportation needs: Medical: Not on file Non-medical: Not on fileTobacco Use Smoking status: Not on fileSubstance and Sexual Activity Alcohol use: Not on file Drug use: Not on file Sexual activity: Not on fileLifestyle Physical activity: Days per week: Not on file Minutes per session: Not on file Stress: Not on fileRelationships Social connections: Talks on phone: Not on file Gets together: Not on file Attends buddhism service: Not on file Active member of club or organization: Not on file Attends meetings of clubs or organizations: Not on file Relation ship status: Not on file Intimate partner violence: Fear of current or ex partner: Not on file Emotionally abused: Not on file Physically abused: Not on file Forced sexual activity: Not on fileOther Topics Concern Not on fileSocial History Narrative Not on fileFamily history is unknown to himMedications & AllergiesAllergies: No Known Drug AllergiesMedications:Medications Prior to AdmissionMedication Sig polyvinyl alcohol (LIQUIFILM TEARS) 1.4 % ophthalmic solution Administer 1- 2drops to both eyes nightly as needed for dry eyes tamsulosin (FLOMAX) 0.4 MG CAPS Take 0.4 mg by mouth daily Scheduled Meds: aspirin 81 mg Oral Daily atorvastatin 80 mg Oral Nightly [START ON 04/07/2020] clopidogrel 75 mg Oral Daily diphenhydrAMINE 25 mg Oral [employer] Influenza Vac Split Quad 0.5 mL Intramuscular During hospitalization ipratropium-albuterol 3 mL Inhalation RTTID metoprolol tartrate 12.5 mg Oral BID normal saline flush 3 mL Intravenous Q8H EVELIN normal saline flush 3 mL Intravenous Q8H EVELIN normal saline flush 3 mL Intravenous Per Protocol pneumococcal vaccine polyvalent 23 0.5 mL Intramuscular DuringhospitalizationContinuous Infusions: heparin (porcine) in NaCl 12 Units/kg/hr (04/06/20 1000) sodium chloride 100 mL/hr (04/06/20 1000)PRN Meds:.acetaminophen, albuterol, atropine sulfate, clopidogrel, fentaNYLCitrate (PF), heparin (porcine), heparin (porcine), iopamidol, lidocaine,midazolam, nitroglycerin, NITROGLYCERIN 0.4 MG/ML IV SOLNROS: All 14 systems reviewed are negative except as stated above.PhysicalTemp (24hrs), Av.6 F, Min:98.6 F, Max:98.6 FBlood Pressure: BP: (!) 158/94 Pulse: Heart Rate: 99Temperature: Temp: 98.6 F Respirations: Resp: (!) 43Admission Weight: Weight: 63.5 kg (140 lb) O2 Saturation: SpO2: 100 %Today's Weight: Weight: 63.5 kg (140 lb) BMI: Body mass index is 24.03 kg/m .Intake/Output Summary (Last 24 hours) at 04/06/2020 1120Last data filed at 04/06/2020 0858Gross per 24 hourIntake 50 mlOutput 0 mlNet 50 mlPhysical Exam General no acute distress. Chronically ill. Cachectic. Malnourished. Neck No JVD, no bruits Chest barrel chest Lungs diminished throughout. Prolonged expiratory phase. Few expiratorywheezes. Heart Normal S1 S2, no murmurs, clicks, or gallops Abdomen Soft, non-tender, non-distended, no palpable HSM or masses, + bowelsounds Neuro AAOx3 Derm . Thin skin. Several ecchymotic areas on arms and shouldersOozing fr om some skin tears in his arm Vascular Pulses palpable and no lower extremity edema.Right radial cath site with heme band intact. No bleeding or hematoma.DiagnosticsNo results found for: CREATININEResults from last 7 daysLab Units 04/06/200935WBC 10*3/uL 11.7*HEMOGLOBIN g/dL 13.0*HEMATOCRIT % 38.3*PLATELETS 10*3/uL 246Assessment and Plan1. Acute anterior wall STEMI: Drug-eluting stents placed to the LAD. Mild tomoderate nonobstructive disease in the RCA.Hemodynamically stable.Continue DAPT and statin. Will trial low-dose beta-ulises and monitor hispulmonary status.ECHO in a.m.Lipid panel and hemoglobin A1c.Cycle troponin levels.Potassium 2.8. This was replaced earlier. We will recheck.2. Severe COPD and chronic O2 at 3 L nasal cannula. Nebulizer treatments asneeded.Monitor closely on beta-blockers.3. HTN : Monitor closely.4. Tobacco use-reports 1 to 2 packs/day. Quit 6 months ago he tells me.Denies any EtOH or recreational drug usage. Aggressive risk factormodifications and lifestyle changes discussed.Will need cardiology follow-up and a PCP prior to dischargeSignature: Lulu JarrettLISANDRODate: April 06, 2020Time: 11:20 AM Name Value Range Interpretation Code Description [facility](s) ID Date Data Source [id number] 04/06/2020 12:44:40 PM EST [facility] Name Value Range Interpretation Code Description Data Kathy rce(s) Supporting Document(s) EKG [facility] KXKAGi3pBnCXYaJuy2NpVpRiGPQgBV6lobb5P9M6eNObO6GvqVCci5kbR9FaA0UsIFZtRYVHXI4CbRUq jb2 [file] Madiha/dkjU3BEFT597I/9xRfLUafRi9nzjHs9Kyglv8vfyEOaqpAsMlQZkh0NQMA/craNv3k6dfOO/sSs 5QOy5UM2Z/yJJB7+rMsHPIfL0JuwQ4RWxQh12Tr98V te7ZFdyqLGidUQTnnXtcK/9pRv9tA8MwjlvS+TD3Adtg2lUH77hw6qS5dNWZeQ2KGqjf+47I2O+4lI5p /uV307dXYJfK/wryvSFRlvl/CL1sj4FyjKmJJPoGCa2E+0NHm/4NCJWdp+e71/ck/Xf9YKpD46f5rk/o fpoHe6B/Af98t4vEzFs9rZ/IlZgHLQlIOmHLSppcne 6PQnsgDTPMqB+hNd/Ymu/wMeF2b8sENQBFCicgu3Q/Ku4wD+WVYIcvGH4ygW+hMd/gAqVTQqwKQzz8xb 49UBNB4FyFKl1AUydJDylCq5fF5nuSRjW/ypAB/iU/SpXEjjE6BCgmc3Oy62ZnUi+hiKiF/MMBe4NG6f I9TlnqLC+4UqWn1Cu+jqT/Ad12XeIAihqo6k+NJ8fo a6Yu4tkpOzASKUmo+uU5JXwSwKpM/Clinical Laboratory Technician/jWXd87+5Rzo8+gaAStJYtc4glj1biJd8hqXV9Kwo+d4QTW3H [file] eeLM3gSlz37pquP3oP1lOTawXixUvLR13GeiLlefbcKTuzFRH7CRYUtSkr1IJ2DC161qjzZj5+patient relations manager+s KPCfgmN5L8Vj1CidfvGvGUfqEeh+4S4Q2R72rula7mp7Px+clH6NKJ98RI0JqRLV/5oN9vUneLT/rFEe nlPICcqAsvxmPRhRfjscQQVsaoqozHoltDxmORpSDj [file] QilNI96WAp2TL7yiIW5vEZD4nK1sEdc18jb6p00pqYW2+jNu3009nX87s6q96yGPw+2Do2pT51B4+8e3 S8wes3syng4otN5Q/F52WIaVHwY3myC2hJ9v2qMkn8 tqc0bh1h5ale9D/eRD5wtebK2+2c6pKe80+rHp9Tc6uRf6quhq99o/by+iutgwd+3kvx3aeS2y7v9Ll+ U290rcNGs6HW15+q4n1bAlaDzaUx3JjZ17G33LyU6MddE60S3PN9rdP046Wj96Cfeu8zMdp7rzP893F0 ulgR72iry8ut86yy7g1V9Kxv+FciPV/f9cs/n17dXN 2hQl01iSoNseKbQU9/fw68ZB4/+yxI7WvBT0uhS4qka5n94vqspyGc2viNJ6WjP0HYJ2350+e5562Gs/ nn6Q+v//Lp3W/fnl68e/P3129/Cv28iXG+6ivgiH1+OI+C62R1ls1Amfrn/NP597dK/3N4L4NXxE7r48 9//7w23iKCRbnoyN9/E/Znd2T22hgo5h7ALxY+0o7v ou3jaTJ8NgmS2+toZz0FDXWQjbqq87oTsE/Pz87p+IGIl8cv6dCy3L/ffvo0c/FlaLn184+n2243E/cu Yw5j6qt+2WGlmFErtNzQ2SwH9nA66K2YVuloC1Kt55ayjns86lU1f5+vP7+95/8ot0Vu6vvhsKmP943e d/6q/NK7K1/dnN59+Pz203+//nOb7t2A920yfva0v8 d26P4cfj+//OMc+0jCF643D4+0+0Y2YNtbd+6+/0KcS99lxEOtN8zjq9m2J9SUZjbVwzZ2zb5/H0L3oK G6rzyOsV9OeqhuDnf6ySd2/T9v79/vn05uD9ee6t6/+qs5oY21/oz/fnyZvKX/4dW/Sm7mSJWpzM3/vH 5wOQjq/Vx6nfrjd72/58Nzs7zbUh08p+mDo8lOw//x 5nTj902/+MLe7+Yu7xKU4xh087/+1NAkz5uFZ79/eMMWJkfgEUR3Yf/50gC8axufTfwGLp4H9vu1t//w 4c97scj/7lPzv9cWRstnDk7L7U1Qp/7m+uPn0+3bX9+++sv9l7jGwzqSiNKhN1Qx9679swcrg2304Hsd hqJw3zKS9XO1bfNcD3WQx9rXmduulGPQ31qvw9dbPO 9d0GYhRn2+/HKQ73Gzu+ZELALEM+Q1eU3b//svNdnNSUfMkRQN1iyDjbUesehZuRetYHMaqGHTcBba9KZ2FxP QqZIRjH3M4MJBckv7dFVMjSNJbjLUfHsKqBRSSUM7AbBRiRN6WKRt3RIHcRJDaSvRwXDErrqY7OOFaLK RnACUpH8YmmtOcvHMrNZHlTj5+SA6fm9DjWwGwYMZk Dfa8QF0ZkCUdCP7MyZYafI1rcqQcE462upQhGHCyHzvkr8IbNKhpZOGHQO2BRSP6VBR6WZIhHd4+ZW5k j2JfFjRwOAUnLkr6WA8MyQAae1XhDD2JT0XqVHLiNXFTEFN6r8LvKZRovtzyojtgW8HsQHM4xP1rECR0 ZSAoRDoyMDIwMTIzMTEyNDQpIAogICAgICAgICAgIC TmGTh5rYFaIB1FL8KjCZCwUWSBBGCzazEaHr2dOVEJHmOjYFAFL1NOOeDxSUD1IIloOxSeGK1PvEVoFI M5XSnVWKXIGQeULAmaRiBzz4F3WBOdQ2RxGLUzaaLjWFBVDXijGzcwOX9aaUfxeqllR8UgpPPaLJNBXF OeNJJnELAxCXFdE1Vki8B2Z7YzLSpOOHZBMQiGXHch PuH0f63psuFIKMMxXEAiIQ8+TR7kr9KhDg6JHGXiIW7wnkl2OB0ExPIpIU5WVZzmcnElY3mkrkTdBsKi ICXWQC6eK5FoeK36RPK+TxShKD7ugbe6ifYlPpTnFCErCQMbSKPlYNebKHFhZCAmXMSnTGK5LBX2UUKf ZaZjAONzVLg2QFMsPXFcQBRyxvFBBOLqAMJmODY7WN ThFPOpWYSeGNyhIGNrING6SIP0AIAnOUXmYV1kAvJfOCShTWZgKDTvDqG0BsFuNdNTOOGiIQDwVLIhXm EjKTGpHKYzMGokUSFwRDCmHVw0UHGePSXdSZ2dBiDaDVObYEPdYHWwVRYyMXQjyuXDTQMoTMNlKVL6PO MeXQWoUWDfPFchZVNlVLIeSKO6OJVmZJFgND8sTlJi HYHhPMB7HtVzWAImLCWxljWZJNEqOTTuDCX1RYSzWQCsMEYeKRojIKRuSOQfMsW1NLQqFYFwXQ1rQmNc XJNrMEG4QRNcVSNnCEDwneCZEOJeRRUxMLv2CuHlRYOlHKRcLJooVENkXPYbMPafINMfETPmYQ2pKvMx VLZfJTDtDBCvUNRjMAFxgaHBVPHkLPMbLML2CzGcZS DdIAPpYDlyOSVkONVmOES7LEFbMZPyZG9tUqArLMArFOsgZubdHTIsZKGwooQXJNJjNIYnIAVmLPKuWK GoFHLiHUwvTWDgBAIeTvJ4PXPbZYPnIE6jJdMtMMIcMSE5FWVtYJHdSWCabcDNMGHmGMShXDUjUYK7HF FnCSYgEYr4edDmdZRbJqi8Yy9TfBatNGC4Dq9BavSn GNBfEDWTNa3Tl230XOIgEFQCCdw+MstajQUpfDamJJJKDNP1QEWrQhPtKZ2R ID Date Data Source [id number] 04/06/2020 03:29:30 PM EST [facility] Name Value Range Interpretation Code Description Data Kathy rce(s) Supporting Document(s) CHOLESTEROL @ 154 mg/dL (0-200) [facility] TRIGLYCERIDE @ 78 mg/dL (30-200) [facility] HDL CHOLESTEROL @ 79 mg/dL (>40) [facility] PER NCEP ATP III GUIDELINES:RESULTS LOWE R THAN 40 MG/DL ARE SUGGESTIVEOF INCREASED RISK FOR CORONARY ARTERYDISEASE. RESULTS > OR = TO 60 MG/DL ARECONSIDERED A NEGATIVE RISK FACTOR. CHOL/HDL RATIO 1.9 RATIO [facility] INTERPRETATION OF CHOL-HDL RATIO CHD RISK FEMALE MALEVERY HIGH >8.3 >14.3HIGH 5.6- 8.3 6.7- 14.3AVERAGE 3.7- 5.6 4.0- 6.7BELOW AVERAGE 2.5- 3.7 2.7- 4.0PROTECTED <2.5 <2.7 LDL CHOL (CALC) 59 mg/dL (<130) [facility] PER NCEP ATP III GUIDELINES: OPTIMAL < 100 NEAR OPTIMAL 100 - 129BORDERLINE HIGH 130 - 159 HIGH 160 - 189 VERY HIGH > 189 ID Date Data Source [id number] 04/06/2020 02:09:50 PM EST [facility] Name Value Range Interpretation Code Description Data Kathy rce(s) Supporting Document(s) HEMOGLOBIN A1C @ 5.2 % (4.0-6.0) [facility] Performed using Siemens [place] immunoassa y.Care must be taken when interpreting DaB4ksmsogmt in patients with a hemoglobin variantor decreased erythrocyte lifespan. Values 5.7 - 6.4% suggest prediabetes.Values >=6.5% are diagnostic for diabetes.REFERENCE: DIABETES CARE 2018: 41(S13-S27).PERFORMED AT [address] [place] [id number] EST AVERAGE GLUCOSE 103 mg/dL [facility] [place] ID Date Data Source [id number] 04/06/2020 02:09:50 PM EST [facility] Name Value Range Interpretation Code Description Data Kathy rce(s) Supporting Document(s) CKMB 222.6 ng/mL (0.0-5.0) [facility] ALERTED CRITICAL RESULT TOROSE(205)[place] [address] ON 351644 [place] 1406 [place] [address] CKMB RELATIVE INDEX 19.0 {index_val} (0.0-4.0) H [facility] ID Date Data Source [id number] 04/06/2020 01:47:55 PM EST [facility] Name Value Range Interpretation Code Description Data Kathy rce(s) Supporting Document(s) TROPONIN I 117.00 ng/mL (<0.05) [facility] Less than 0.05: Myocardial injury unlike lyGreater than or equal to 0.05: Highly suggestive of myocardial injuryCorrelation with rise and/or fall ofserial troponins, clinical symptomsand ECG changes is necessary.ALERTED CRITICAL RESULT TOROSE(205)[place] [address] ON 127076 AT 1345 BY [id number] ID Date Data Source [id number] 04/06/2020 01:47:55 PM EST [facility] Name Value Range Interpretation Code Description Data Kathy rce(s) Supporting Document(s) CK 1173 U/L (39-308) [facility] ALERTED CRITICAL RESULT TOROSE(205)[place] [address] ON 980439 AT 1345 BY [id number] ID Date Data Source [id number] 04/06/2020 01:44:16 PM EST [facility] Name Value Range Interpretation Code Description Data Kathy rce(s) Supporting Document(s) SODIUM 142 mmol/L (136-145) [facility] POTASSIUM 5.2 mmol/L (3.6-5.2) [facility] CHLORIDE 103 mmol/L (100-108) [facility] CO2 36 mmol/L (22-31) H [facility] ANION GAP 3 mmol/L (7-16) L [facility] UREA NITROGEN 16 mg/dL (7-24) [facility] CREATININE 0.68 mg/dL (0.80-1.30) L [facility] BUN/CREAT RATIO 23.5 RATIO (10.0-20.0) [facility] GLUCOSE 101 mg/dL (70-99) H [facility] CALCIUM 9.0 mg/dL (8.4-10.2) [facility] GFR >60 ml/min/1.73m2 (>59) [facility] GFR ( AMER) >60 ml/min/1.73m2 (>59) [facility] GFR INTERPRETATION [facility] --NORMAL KIDNEY FUNCTION OR MILD DISEASE - GFR >OR= 60CHRONIC KIDNEY DISEASE - GFR 15 - 59RENAL FAILURE - GFR <15 Est. GFR calculation based on the MDRDstudy equation, which assumes a steadystate for creatinine. Est. GFR should notbe used for medication dosing. ID Date Data Source [id number] 04/06/2020 01:44:16 PM EST [facility] Name Value Range Interpretation Code Description Data Kathy rce(s) Supporting Document(s) MAGNESIUM 2.1 mg/dL (1.7-2.4) [facility] ID Date Data Source [id number] 04/06/2020 12:16:07 PM EST [facility] Name Value Range Interpretation Code Description Data Kathy rce(s) Supporting Document(s) SODIUM 142 mmol/L (136-145) [facility] POTASSIUM 5.1 mmol/L (3.6-5.2) [facility] CHLORIDE 104 mmol/L (100-108) [facility] CO2 36 mmol/L (22-31) H [facility] ANION GAP 2 mmol/L (7-16) L [facility] UREA NITROGEN 17 mg/dL (7-24) [facility] CREATININE 0.69 mg/dL (0.80-1.30) L [facility] BUN/CREAT RATIO 24.6 RATIO (10.0-20.0) H [facility] GLUCOSE 95 mg/dL (70-99) [facility] CALCIUM 8.8 mg/dL (8.4-10.2) [facility] GFR >60 ml/min/1.73m2 (>59) [facility] GFR ( AMER) >60 ml/min/1.73m2 (>59) [facility] GFR INTERPRETATION [facility] --NORMAL KIDNEY FUNCTION OR MILD DISEASE - GFR >OR= 60CHRONIC KIDNEY DISEASE - GFR 15 - 59RENAL FAILURE - GFR <15 Est. GFR calculation based on the MDRDstudy equation, which assumes a steadystate for creatinine. Est. GFR should notbe used for medication dosing. ID Date Data Source [id number] 04/06/2020 11:56:48 AM EST [facility] Name Value Range Interpretation Code Description Data Kathy rce(s) Supporting Document(s) APTT >150.0 s (22.0-34.3) HH [facility] [place] [facility] ALERTED CRITICAL RESULT TOROSE(205)[place] [address] ON 935147 AT 1153 [place] [id number] ID Date Data Source [id number] 04/06/2020 11:51:16 AM EST [facility] Name Value Range Interpretation Code Description Data Kathy rce(s) Supporting Document(s) PT 11.0 s (9.2-11.9) [facility] INR 1.05 [facility] SUGGESTED THERAPEUTIC RANGES USING INR F ORSTABILIZED ANTICOAGULATED PATIENTS:STANDARD DOSE THERAPY INR 2.0-3.0 DVT, PE, PREVENT DVT OR EMBOLISMHIGH DOSE THERAPY INR 2.5-3.5 PREVENT EMBOLISM FROM MECHANICAL HEART VALVE ID Date Data Source [id number] 04/06/2020 11:31:43 AM EST [facility] Name Value Range Interpretation Code Description Data Kathy rce(s) Supporting Document(s) WBC 11.7 10*3/uL (4.1-11.0) H [facility] RBC 4.16 10*6/uL (4.60-6.10) L [facility] HGB 13.0 g/dL (13.5-18.0) L [facility] HCT 38.3 % (41.0-53.0) L [facility] MCV 92.0 fL (80.0-95.0) [facility] MCH 31.2 pg (27.0-32.0) [facility] MCHC 33.9 g/dL (32.0-36.0) [facility] RDW 13.8 % (10.5-14.5) [facility] PLT 246 10*3/uL (150-450) [facility] MPV 8.0 fL (7.1-10.7) [facility] ID Date Data Source [id number] 04/06/2020 09:05:09 AM EST [facility] Name Value Range Interpretation Code Description Data Kathy rce(s) Supporting Document(s) &PDF [facility] NFDAHt3bQsESWoHq26/JVIaiAGPoc3NuXKakHOv2SMufJGCeR4QlgPhsKWOXPeCrMcbFVQ7HFGzKK9nQ lYX [file] JzWasFRs0aZpYLi5ZuX6/arpklLXS//vStPTZfWW/qB8OYUuJtNU8itZc/KutXA/sXCLUauq/eJJ++Clinical Laboratory Technician BFR3Xw2h8842Adad78sTCVoN/49EDHnI41UA16dN3q [file] ICAgICAgICAgICAgICAgICAgICAgICAgICAgICAgIC EeEHWqXPAoOOPyZZGmNGMxOPHuRNSvFTHwOKFhYDDhYNNlIHJlATOiXNHiJSEaJQKyMNEwZBDyWP0CUV AgICAgICAgICAgICAgICAgICAgICAgICAgICAgICAgICAgICAgICAgICAgICAgICAgICAgICAgICAgIC AgICAgICAgICAgICAgICAgICAgICAgICAgICAgICAg RAOrDXUrPN1DGRWyHXIhRCHfTTFtBQOrBRAuHZFlBOZzPULbJHSgJLXiBFZiQCYhPWYdQSZaUXIpYOKt STWcRZByJXAfQORjFXBuNAZhIYAbRXMyHUMiEZUoZQMdVLJhMNOpYFNrWNOdZEJsJK7DDHZhPFFtWJTc ICAgICAgICAgICAgICAgICAgICAgICAgICAgICAgIC AgICAgICAgICAgICAgICAgICAgICAgICAgICAgICAgICAgICAgICAgICAgICAgICAgICAgICAgICAgIA 0KICAgICAgICAgICAgICAgICAgICAgICAgICAgICAgICAgICAgICAgICAgICAgICAgICAgICAgICAgIC AgICAgICAgICAgICAgICAgICAgICAgICAgICAgICAg QFNcSNXmUQKzWQ6ISVWiTKVgLQKyNEJtARLlCREoHLVcEXSfRBYlNSXqHHPaKKRsXROeGAVeONNyMDKb BMHzUOUtFRNkKRMkGVLbROXnQMVjHFPyAFTsPFSeQXAfWETrKYQsWQMuBDYvNXHqQKDbEC2VUMMgVKYd ICAgICAgICAgICAgICAgICAgICAgICAgICAgICAgIC AgICAgICAgICAgICAgICAgICAgICAgICAgICAgICAgICAgICAgICAgICAgICAgICAgICAgICAgICAgIC GvTU6FTJIeQYEeQDExRVXcDOVrTDWrCQOaLOUlPEBgJOTzXDZoOLHuHZOcIKSeBYStTJPtYDAgQUCrBV AgICAgICAgICAgICAgICAgICAgICAgICAgICAgICAg OAVfCTJaGTPbCKYqEM8GLOKfDNSxJSQeIUFdJYPfJFGmWLFnKAUpBBKwFCHfJSJtMTLdWQEfEXDeJFXk UOQsZIUxXALtPWGtDYXzRQXvPEXgCAVoJKUsPLAvJXTuLAOaHFHgSOOvFPBtQMWxIVNbDVMzPQ8GBI77 zJLht0S0NYOvWT8zxpf/Xp1RHDkileUzfGKsWB7SUj RpEI7ves9SJzLvQJ0luq4LYDxPBdGxH2M3jPUrKVJbUMLFWvQvC01wTCzcEu84RKgaWEHuYzHySRn0Nz 6PSzTwM8gpHBXwDvZ2PYCfVdC3TPUlIjZ7GMDpRgHlPIZxDNAdZTMqQDEDGOT1ACVrFkIiRYtePX1Yd1 AetNI1XFk+Ke7VKH1hi6JqFJnjQPLzOI9tgz2BRJoL YdAqD7VaheQ7USMfRDYmXs3WNSVqHDRroBMqUNUbMZEBJbSbN3KenD74OJKPEq5+DQplbmRvYmoNCjMx MJSxe8CeQWs6FZ7PWTKdBFa2uCTnWV8nfVJyyHRoOMrsBB9IMCO9KXyuNjYrRDHfM5lSVoSgIUBsFMOd gRacGC3WKoOqF6AowlTvqOUoKHQkDJDZTh4+DQplbm KoOllDJmHpGULmi3FaWGs4QP0CCRFvYVqoRA4VPTQxdZ4zGQqqNZ1MDwTiVNJyLDVHLgXbV98mqQHxRM u6D8BlFkEoSJBsLqsgEMWwXPvmEoTnEONlNfTlIGlkOY8+ID4+NJhsRG3WBQecetEgALHtYs1TKWReUM EoXH9eVMLbVBKxI4G8yNkaCRVMKvOrZ3ffzhabHE8z WQVaB193eHsdnaJiGZPhURBgOp9LBVQuUQC7NYNmaGRsFxpoWIYCOYdmMH6ViDQwNLY9hN7cCEqnBKHb FHAlV3hFJuUymJomTZ11jWbcvfSzfGJkFDe+Gr6HHW5qk4TjAOw9kcCwEOsrVOKrHTitCBEgIXVkIUEe FMB9HZD6VLGSAyIoZZAxYZQyNMchCYGlFUMsms3QHP CbPZC1MxlaYdNhAJDyXUQpXUcbYNDjUYJ0IvK1NDQfDWKdEZ4OKvSeFEShLYFsPATnWFUqERRwuh3KZY KqBYZuUbX1CpGpFIOaPVYbTSlcOJSoMDXvKjw8BSVdHXKzIR7XHbMlKGBpZNIlAkMcMPOiPNGvdg1AUY BqPFXkTYC3YqFpEGAqWDLzFQchHBXuGGO1FFU8HNOu BBKtQX0GFsJoSCRvKGhhLzmdVGNkMLOwmc9CWCOsFGFnJHL2AAOwLQDjXOGwRIvxOBBwZYN8HRwaIFPp KCPrWM3JJcPcRLDwZKIeJlTgHPZvEESvic3DNRRpNYItYSGfIZHjUFYqVZWpWKsyFNIeASEwJYA8DRDz OGPqLY4XZxXdOOXzXCWmDiCjFWTaWZQtfz3BZICzNU IkANBjVHEiFKStSLHqAAfmEUQkSEX0LzTwWTUfWINvML4LWkGdUHJrNNH1AROhMUGbRPNblq3VAVQxAO XbGVE3SCPbMQXuZJRbPHexBRQtHCZ4Nmn8QGYtMZOfGI4SJlWfWWJbXAJ6HmAqGAIcTETbxy2QURLbBB CvTNh9PUYyYUPmMYVwXArvKMMzOFK6VzR6WMQoPWTe WN9QTjQaJDJmTdF2WMBjZZYjOTInxe8SKPCcQHP2PFhlOtRqAQPgUIZvNXvdIAUiRVN6BCZkNQLtIAQd VO7NJrWoWGCzZwZ0OPHyKJWxHNHwxj4BDKAqYOA9EnR0UjGyZTNnUHEfKDehHMWfWAL3QbT4ITYaKEDl JA7JDyXyXUPuBho0XeqfXKXeGSUlog4KWRMiKME2EC njESToRIHwEEDvNKb6ufEjpZEsXMb3SH3OC3UkieZbYaSNZq3Tf922TXShGXFuGf1LW6xqXz2uWGVpGY VQCv2PXKu3JBxuFJL5QQQyEeMaFhCsJTOpMGKoKuB8QYBzHDhjYPW+KUvjRKD3NTkmK2O7WDW2XNI1B7 MkFiAyPJerKkJrOKL9AD9pPPAMDi2+IRvfrZSxuQfsSCPPKtP1YLusFYniJIVLGu4R ID Date Data Source [id number] 04/06/2020 08:53:27 AM EST [facility] Name Value Range Interpretation Code Description Data Kathy rce(s) Supporting Document(s) POC ACT 263 s (80-140) H [facility] PERFORMED BY [facility] ID Date Data Source [id number] 04/06/2020 07:56:23 AM EST [facility] Name Value Range Interpretation Code Description Data Kathy rce(s) Supporting Document(s) [facility]UAUhLag3CrNvBpXPHmPD6cryo6U1I8nDWnI2XjiIWlq7fbS8XdX8NfOMMxKNZOHK2SuEDf jb2 [file] fOBorVqk4INwB04EvGN5bkkm4b2T9vVAj6nNOZ+Mary Beth [file] [id number]== ID Date Data Source [id number] 04/06/2020 04:03:00 AM EST [facility] Name Value Range Interpretation Code Description Data Kathy rce(s) Supporting Document(s) SARS coronavirus 2 RNA [Presence] in Res piratory specimen by BONITA with probe detection [facility] This lab was ordered by [facility] a nd reported by [facility]. ID Date Data Source [id number] 06/14/2019 10:34:00 AM EDT [facility] ([facility] Name Value Range Interpretation Code Description Data Kathy rce(s) Supporting Document(s) BUN 17 mg/dL 8-27 [facility] Glucose [Mass/volume] in Serum or Plasma 116 mg/dL 65-99 Above high normal [facility] ([facility] eGFR If NonAfricn Am 89 mL/min/1.73 [facility] ([facility] eGFR If Africn Am 103 mL/min/1.73 [facility] ([facility] Creatinine [Mass/volume] in Serum or Plasma 0.74 mg/dL 0.76 -1.27 Below low normal [facility] ([facility] ) Sodium [Moles/volume] in Serum or Plasma 142 mmol/L 134-144 [facility] ([facility] Potassium [Moles/volume] in Serum or Plasma 4.7 mmol/L 3.5-5.2 [facility] ([facility] Urea nitrogen/Creatinine [Mass Ratio] in Serum or Plasma 23 1 0-24 [facility] ([facility] Carbon dioxide, total [Moles/volume] in Serum or Plasma 27 mmol/L 20 -29 [facility] ([facility] Calcium [Mass/volume] in Serum or Plasma 9.7 mg/dL 8.6-10.2 [facility] ([facility] Chloride [Moles/volume] in Serum or Plasma 98 mmol/L 96-106 [facility] ([facility] Protein [Mass/volume] in Serum or Plasma 7.0 g/dL 6.0-8.5 [facility] ([facility] Globulin [Mass/volume] in Serum by calculation 2.0 g/dL 1.5-4.5 [facility] ([facility] Albumin [Mass/volume] in Serum or Plasma 5.0 g/dL 3.7-4.7 Above high normal [facility] ([facility] Albumin/Globulin [Mass Ratio] in Serum or Plasma 2.5 1.2-2 .2 Above high normal [facility] ([facility] Bilirubin.total [Mass/volume] in Serum or Plasma 1.1 mg/dL 0.0-1.2 [facility] ([facility] Alanine aminotransferase [Enzymatic activity/volume] in Seru m or Plasma 6 IU/L 0-44 [facility] Aspartate aminotransferase [Enzymatic activity/volume] in Serum or Plasma 16 IU/L 0-40 [facility] Alkaline phosphatase [Enzymatic activity/volume] in Serum or Plasma 122 IU/L 39-117 Above high normal [facility] ([facility] ID Date Data Source [id number] 06/14/2019 10:34:00 AM EDT [facility] ([facility] Name Value Range Interpretation Code Description Data Kathy rce(s) Supporting Document(s) Leukocytes [#/volume] in Blood by Automated count 6.5 x10E3/uL 3.4-10 .8 [facility] ([facility] Hematocrit [Volume Fraction] of Blood by Automated count 49.2 % 3 7.5-51.0 [facility] ([facility] Erythrocytes [#/volume] in Blood by Automated count 5.14 x10E6/uL 4.1 4-5.80 [facility] ([facility] Hemoglobin [Mass/volume] in Blood 16.0 g/dL 13.0-17.7 [facility] ([facility] Erythrocyte mean corpuscular hemoglobin [Entitic mass] by Automated count 31.1 pg 26.6-33.0 [facility] Erythrocyte mean corpuscular volume [Entitic volume] by Auto mated count 96 fL 79-97 [facility] Erythrocyte mean corpuscular hemoglobin concentration [Mass/volume] by Automated count 32.5 g/dL 31.5-35.7 [facility] ([facility] Platelets [#/volume] in Blood by Automated count 340 x10E3/uL 150-450 [facility] ([facility] Erythrocyte distribution width [Ratio] by Automated count 14.0 % 11.6-15.4 [facility] ([facility] Monocytes/100 leukocytes in Blood by Automated count 8 % [facility] ([facility] Neutrophils 70 % [facility] Lymphs 21 % [facility] Basophils/100 leukocytes in Blood by Automated count 0 % [facility] ([facility] Eosinophils/100 leukocytes in Blood by Automated count 1 % [facility] ([facility] Immature cells [#/volume] in Blood TNP [facility] ([facility] Neutrophils [#/volume] in Blood by Automated count 4.5 x10E3/uL 1.4-7 .0 [facility] ([facility] Monocytes [#/volume] in Blood 0.5 x10E3/uL 0.1-0.9 [facility] ([facility] Lymphocytes [#/volume] in Blood 1.4 x10E3/uL 0.7-3.1 [facility] ([facility] Eosinophils [#/volume] in Blood by Automated count 0.0 x10E3/uL 0.0-0 .4 [facility] ([facility] Immature granulocytes/100 leukocytes in Blood by Automated count 0 % [facility] ([facility] Immature granulocytes [#/volume] in Blood by Automated count 0.0 x10E3/uL 0.0-0.1 [facility] ([facility] Basophils [#/volume] in Blood by Automated count 0.0 x10E3/uL 0.0-0.2 [facility] ([facility] Nucleated erythrocytes/100 leukocytes [Ratio] in Blood by Automa rubina count TNP [facility] ([facility] ) Morphology [Interpretation] in Blood Narrative TNP [facility] ([facility] Procedure Social History Code Duration Value Status Description Data Source(s ) Alcohol intake 04/19/2020 12:00:00 AM EST Not Currently completed [facility] Cigarettes smoked current (pack per day) - Reported 04/19/19 12:00:00 AM EST UNK completed [facility] Smoking 04/19/2020 12:00:00 AM EST Current every day smoker co mpleted Current every day smoker [facility] Smoking 04/06/2020 12:00:00 AM EST Unknown if ever smoked comp leted Unknown if ever smoked [facility] Vital Signs ID Date Data Source UNK Name Value Range Interpretation Code Description Data Source(s) Oxygen saturation in Arterial blood by Pulse oximetry 96 % 96 % [facility] Body mass index (BMI) [Ratio] 17.95 kg/m2 17.95 kg/m2 [facility] Body weight 47.446 kg 47.446 kg [facility] Body height 162.6 cm 162.6 cm [facility] Diastolic blood pressure 90 mm[Hg] 90 mm[Hg] [facility] Systolic blood pressure 122 mm[Hg] 122 mm[Hg] [facility] Respiratory rate 18 /min 18 /min [facility] Body temperature 36.78 Lili 36.78 Lili [facility] Diastolic blood pressure 64 mm[Hg] 64 mm[Hg] [facility] Systolic blood pressure 104 mm[Hg] 104 mm[Hg] [facility] Oxygen saturation in Arterial blood by Pulse oximetry 97 % 97 % [facility] Heart rate 72 /min 72 /min [facility] Body mass index (BMI) [Ratio] 24.03 kg/m2 24.03 kg/m2 [facility] Body weight 63.504 kg 63.504 kg [facility] Body height 162.6 cm 162.6 cm [facility] Oxygen saturation in Arterial blood by Pulse oximetry 91 % 91 % [facility] ([facility] (On O2 @ 2 LPM [place]) Body mass index (BMI) [Ratio] 16.9 kg/m2 16.9 k g/m2 [facility] ([facility] Body weight 101.31 [lb_av] 101.31 [lb_av] MEDEN T ([facility] Body height 65 [in_i] 65 [in_i] [facility] ([facility] 5'5" Respiratory rate 20 /min 20 /min [facility] ( [facility] Heart rate 90 /min 90 /min [facility] ([facility] Body temperature 97.7 [degF] 97.7 [degF] RICARDO ([facility] Diastolic blood pressure 96 mm[Hg] 96 mm[Hg] [facility] ([facility] Systolic blood pressure 142 mm[Hg] 142 mm[Hg] M PATRICIA ([facility] Patient Treatment Plan of Care Planned Activity Planned Date Details Description Data Source (s) 24 HR Nicotine 0.583 MG/HR Transdermal Patch 04/19/2020 12:00:00 AM [facility] Albuterol 0.833 MG/ML / Ipratropium [place] 0.167 MG/M L Inhalant Solution 04/14/2020 12:00:00 AM [facility] clopidogrel 75 MG Oral Tablet 04/10/2020 12:00:00 AM [facility] Aspirin 81 MG Chewable Tablet 04/10/2020 12:00:00 AM [facility] albuterol (PROVENTIL HFA;VENTOLIN HFA) 108 (90 Base) M CG/ACT inhaler 04/09/2020 12:00:00 AM [facility] Nitroglycerin 0.4 MG Sublingual Tablet 04/09/2020 12:00:00 AM [facility] Metoprolol Tartrate 25 MG Oral Tablet 04/09/2020 12:00:00 AM [facility] atorvastatin 40 MG Oral Tablet 04/09/2020 12:00:00 AM [facility] Tamsulosin hydrochloride 0.4 MG Oral Capsule [facility]
--- OUTSIDE RECORDS SUMMARY | 2020-05-11 15:27 | CCD ---
Author Author [facility] Organization [facility] Address Unknown Phone Unavailable Care Team Providers Care Bank Examiner Name Role Phone Ivan Crowley MD Unavailable [...] Unavailable MALINDA FOLEY Unavailable Unavailable Verbeck Jr, [place] Ronak PA Unavailable Unavailable Verbeck Jr, [place] Ronak PA Unavailable Unavailable Verbeck Jr, [place] Ronak PA Unavailable Unavailable Verbeck Jr, [place] Ronak PA Unavailable Unavailable Verbeck Jr, [place] Ronak PA Unavailable Unavailable Verbeck Jr, [place] Ronak PA Unavailable Unavailable Verbeck Jr, [place] Ronak PA Unavailable Unavailable Verbeck Jr, [place] Ronak PA Unavailable Unavailable Verbeck Jr, Jaziel Ronak PA Unavailable Unavailable Verbeck Jr, [place] Ronak PA Unavailable Unavailable Verbeck Jr, [place] Ronak PA Unavailable Unavailable Verbeck Jr, [place] Ronak PA Unavailable Unavailable Verbeck Jr, [place] Ronak PA Unavailable Unavailable Verbeck Jr, Jaziel Ronak PA Unavailable Unavailable Verbeck Jr, [place] Ronak PA Unavailable Unavailable Verbeck Jr, Jaziel Ronak PA Unavailable Unavailable Verbeck Jr, [place] Ronak PA Unavailable Unavailable Verbeck Jr, [place] Ronak PA Unavailable Unavailable Verbeck Jr, [place] Ronak PA Unavailable Unavailable Verbeck Jr, [place] Ronak PA Unavailable Unavailable Verbeck Jr, [place] Ronak PA Unavailable Unavailable Verbeck Jr, [place] Ronak PA Unavailable Unavailable Verbeck Jr, [place] Ronak PA Unavailable Unavailable Verbeck Jr, [place] Ronak PA Unavailable Unavailable Verbeck Jr, [place] Ronak PA Unavailable Unavailable Verbeck Jr, [place] Ronak PA Unavailable Unavailable Verbeck Jr, [place] Ronak PA Unavailable Unavailable Verbeck Jr, Jaziel Ronak PA Unavailable Unavailable Verbeck Jr, [place] Ronak PA Unavailable Unavailable Verbeck Jr, Jaziel Ronak PA Unavailable Unavailable Verbeck Jr, [place] Ronak PA Unavailable Unavailable Verbeck Jr, [place] Ronak PA Unavailable Unavailable Verbeck Jr, Jaziel [...] is protected by Article 27-F of the [facility] Public Health law. If you continue you may have access to information: Regarding HIV / AIDS; Provided by facilities licensed or operated by the [facility] Office of Mental Health; or Provided by the [facility] Office for People With Developmental Disabilities. If such information is present, then the following [facility] mandated warning applies: This information has been [...] law may result in a fine or mcc sentence or both. A general authorization for the release of medical or other information is NOT sufficient authorization for further disc losure. Allergies and Adverse Reactions Type Description Substance Reaction Status Data Source(s ) Propensity to adverse reactions TAMSULOSIN HCL Tamsulosin Hcl Shortness Of Breath High Active [facility] High Propensity to adverse reactions BEE VENOM Honey bee venom Active [facility] Family History Family Member Name Family Member Gender Family Member Status Date o f Status Description Data Source(s) Unknown Male Problem [facility] ([facility] () Encounters Encounter Providers Location Date Indications Data Source(s ) Outpatient Attender: Ivan AKHTAR.VISHAL-SJSONIA 04/07 12:00:00 AM EST - 04/19/2020 01:53:07 PM EST [facility] Inpatient Attender: ROSALINE FOLEYAdmitter: ROSALINE FOLEY ES1 -[id number] 04/06/2020 07:48:51 AM EST - 04/09/2020 03:11:00 PM EST [facility] Patient discharged. Outpatient Attender: Ronak [facility] Office 12/2019 10:00:00 AM EDT MEDMICHAEL ([facility] Immunizations Vaccine Date Status Description Data Source(s) New in 2011. IIV4 04/06/2020 12:00:00 AM EST completed Fl u Vaccine =>6MOS Quad Pres-Free 04/06/2020 (Deferred: Patient Refused) [facility] Deferred: Patient Refused pneumococcal polysaccharide PPV23 04/06/2020 12:00:00 AM EST com pleted Pneumococcal Polysaccharide (aka Pneumovax 23) 04/06/2020 () [facility] Medications Medication Brand Name Start Date Product Form Dose Route Admi nistrative Instructions Pharmacy Instructions Status Indications Reaction Description Data Source(s) 24 HR Nicotine 0.583 MG/HR Transdermal Patch nicotine (NICODERM CQ) 14 MG/24HR nicotine (NICODERM CQ) 14 MG/24HR 04/19/2020 12:00:00 AM EST 1 { patch} Transdermal active Place 1 patch on t he skin daily [facility] Albuterol 0.833 MG/ML / Ipratropium Brom anna 0.167 MG/ML Inhalant Solution ipratropium-albuterol (DUO-NEB) 0.5-2.5 mg/mL nebulizer ipratropium-albuterol (DUO-NEB) 0.5-2.5 mg/mL nebulizer 04/14/2020 12:00:00 AM EST active [facility] Aspirin 81 MG Chewable Tablet aspirin 81 MG chewable t ablet aspirin 81 MG chewable tablet 04/10/2020 12:00:00 AM EST 81 mg Oral ac tive Chew 1 tablet (81 mg total) daily [facility] clopidogrel 75 MG Oral Tablet clopidogrel (PLAVIX) 75 MG tablet clopidogrel (PLAVIX) 75 MG tablet 04/10/2020 12:00:00 AM EST 75 mg Oral active Take 1 tablet (75 mg total) by mouth daily [facility] 25 mg 04/09/2020 12:00:00 AM EST tablet 60 TAKE ONE TABLET BY MOUTH TWICE A DAY TAKE ONE TABLET BY MOUTH TWICE A DAY SOLD: 04/09/2020 [facility] atorvastatin 40 MG Oral Tablet ATORVASTATIN [...] MINUTES NEEDED FOR CHEST PAIN SOLD: 04/09/2020 [facility] atorvastatin 40 MG Oral Tablet atorvastatin (LIPITOR) 40 MG tablet atorvastatin (LIPITOR) 40 MG tablet 04/09/2020 12:00:00 AM EST 40 mg Oral active Take 1 tablet (40 mg total) by mouth nightly [facility] albuterol (PROVENTIL HFA;VENTOLIN HFA) 108 (90 Base) M CG/ACT inhaler 0523-7350-72 04/09/2020 12:00:00 AM EST 2 {puff} Inhalation active Inhale 2 puffs every 4 (four) hours as needed for wheezing [facility] Nitroglycerin 0.4 MG Sublingual Tablet n itroglycerin (NITROSTAT) 0.4 MG SL tablet nitroglycerin (NITROSTAT) 0.4 MG SL tablet 04/09/2020 12:00:00 A M EST 0.[address] 1 t ablet (0.4 mg total) under the tongue every 5 (five) minutes as needed for chest pain [facility] Metoprolol Tartrate 25 MG Oral Tablet me toprolol tartrate (LOPRESSOR) 25 MG tablet metoprolol tartrate (LOPRESSOR) 25 MG tablet 04/09/2020 12:0 0:00 AM EST 25 mg Oral active Take 1 tablet (2 5 mg total) by mouth 2 (two) times a day [facility] 90 mcg/actuation 04/09/2020 12:00:00 AM EST [...] daily, First dose on Fri04/08/20 at 2100 [facility] Medication administered onsite atorvastatin 40 MG Oral Tablet atorvastatin (LIPITOR) tablet 40 mg atorvastatin (LIPITOR) tablet 40 mg 04/07/2020 09:00:00 PM EST 40 mg Oral active 40 mg, Oral, Nightly, First dose on Fri04/07/20 at 2100 [facility] Medication administered onsite clopidogrel 75 MG Oral Tablet clopidogrel (PLAVIX) tab let 75 mg clopidogrel (PLAVIX) tablet 75 mg 04/07/2020 09:00:00 AM EST 75 mg Oral active 75 mg, Oral, Daily, First dose on Fri04/07/20 at 0900 [facility] Medication administered onsite atorvastatin 80 MG Oral Tablet atorvastatin (LIPITOR) tablet 80 mg atorvastatin (LIPITOR) tablet 80 mg 04/06/2020 09:00:00 PM EST 80 mg Oral aborted 80 mg, Oral, Nightly, First dose on Digna 04/06/20 at 2100 [facility] Medication administered onsite Albuterol 0.833 MG/ML / Ipratropium Brom anna 0.167 MG/ML Inhalant Solution ipratropium-albuterol (DUO-NEB) 0.5-2.5 mg/mL nebulizer solution 3 mL ipratropium-albuterol (DUO-NEB) 0.5-2.5 mg/mL nebulizer solution 3 mL 04/06/2020 02:00:00 PM EST 3 mL Inhalation active 3 mL, Inhalation, 3 times daily, First dose on Digna 04/06/20 at 1400 [facility] Medication administered onsite Metoprolol Tartrate 25 MG Oral Tablet me toprolol tartrate (LOPRESSOR) tablet 12.5 mg metoprolol tartrate (LOPRESSOR) tablet 12.5 mg 020 12:00:00 PM EST 12.5 mg Oral aborted 12.5 mg, Oral, 2 times daily, First dose on Digna 04/06/20 at 1200 [facility] Medication administered onsite Albuterol 0.83 MG/ML Inhalant Solution a lbuterol (PROVENTIL) nebulizer solution 2.5 mg albuterol (PROVENTIL) nebulizer solution 2.5 mg 2019 11:19:45 AM EST 2.5 mg active 2.5 mg, Nebulization, Every 2 hour PRN, wheezing, shortness of breath, Starting Digna 04/06/20 at 1119 [facility] Medication administered onsite sodium chloride 0.9% (NS) infusion 9854-2131-45 04/06/2020 10:00:00 AM EST 100 mL/h Intravenous aborted at 100 m L/hr, 100 mL/hr, Intravenous, Continuous, Starting Digna 04/06/20 at 1000, Pre-op
Start two hours prior to scheduled start time
[facility] Medication administered onsite 500 ML heparin [...] 1 unit/kg/hr IV58.1 - 87 Therapeutic, No Iwwksd43.1 - 97 Decrease infusion 1 unit/kg/hr IV [...] single port tubing (SmartSite Infusion Set ref [id number]). Medication and tubing is to be discarded if infusion off for 4 hours.
[facility] Medication administered onsite Acetaminophen 325 MG [...] mg from all sources in 24 hours."
[facility] Medication administered onsite potassium chloride (KLOR-CON) packet 40 mEq 0361-6666-06 04/06/2020 09:00:00 AM EST 40 meq Oral completed 40 mEq , Oral, Once, Digna 04/06/20 at 0900, For 1 dose [facility] Medication administered onsite 500 ML heparin [...] 1 unit/kg/hr IV58.1 - 87 Therapeutic, No Euwskj87.1 - 97 Decrease infusion 1 unit/kg/hr IV [...] single port tubing (SmartSite Infusion Set ref [id number]). Medication and tubing is to be discarded if infusion off for 4 hours.
[facility] Medication administered onsite Aspirin 81 MG Chewable Tablet aspirin chewable tablet 81 mg aspirin chewable tablet 81 mg 04/06/2020 09:00:00 AM EST 81 mg Oral activ e 81 mg, Oral, Daily, First dose on Digna 04/06/20 at 0900 [facility] Medication administered onsite Nitroglycerin 0.4 MG Sublingual Tablet n itroglycerin (NITROSTAT) SL tablet 0.4 mg nitroglycerin (NITROSTAT) SL tablet 0.4 mg 04/06/2020 08:05:03 A M EST 0.4 mg Sublingual active 0.4 mg, S ublingual, Every 5 min PRN, chest pain, Starting Digna 04/06/20 at 0805
May administer up to 3 doses per episode.
[facility] Medication administered onsite 1 ML heparin [...] 30 units/kg IV (Maximum bolus: 5,000 units)
[facility] Medication administered onsite Tamsulosin hydrochloride 0.4 MG Oral Capsule tamsulosi n (FLOMAX) 0.4 MG CAPS tamsulosin (FLOMAX) 0.4 MG CAPS 0.4 mg Oral aborte d Take 0.4 mg by mouth daily [facility] Insurance Providers Payer name Policy type / Coverage type Policy ID Covered democrat ID Covered democrat's relationship to de paz Policy [place] Plan Information AETNA MEDICARE [id number] SP [id number] AETNA MEDICARE [id number] Susana MEBRY [id number] MEDICARE C [id number] S [id number] AETNA MEDICARE Medicare [id number] MEDICARE [id number] SP [id number] SELF PAY ONLY [id number] SP [id number] MEDICARE COMPLETE [id number] SP [id number] [facility] Commercial [id number] Self [id number] MEDICARE COMPLETE-[facility] O [id number] S [id number] MEDICARE COMPLETE [id number] SP [id number] Problems, Conditions, and Diagnoses Code Display Name Description Problem Type Effective Dates Data Source(s) E78.00 Pure hypercholesterolemia Pure hypercholesterolemia 64 [id number] 04/19/2020 12:00:00 AM EST [facility] 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 [id number] 04/19/2020 12:00:00 AM EST [facility] I10 HTN (hypertension) HTN (hypertension) [id number] 0 12:00:00 AM [facility] J44.9 COPD (chronic obstructive pulmonary dise ase) COPD (chronic obstructive pulmonary disease) [id number] 04/06/2020 12:00:00 AM [facility] I21.09 Acute anterior wall MT Acute anterior wall MT [id number] 04/06/2020 12:00:00 AM [facility] E78.00 Pure hypercholesterolemia, unspecified P ure hypercholesterolemia, unspecified Diagnosis 04/19/2020 01:09:04 PM [facility] I10 Essential (primary) hypertension Essential (primary) h ypertension Diagnosis 04/19/2020 01:09:04 PM [facility] 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 Atherosclerotic heart disease of [place] Diagnosis 04/19/2020 01:09:04 PM [facility] J43.9 Emphysema, unspecified Emphysema, unspecified Diagnosi s 04/06/2020 07:48:51 AM [facility] I21.09 ST elevation (STEMI) myocard ial infarction involving other coronary artery of anterior wall ST elevation (STEMI) myocardial infarcti Diagnosis 04/06/2020 07:48:51 AM [facility] I21.3 ST elevation (STEMI) myocardial infarcti on of unspecified site ST elevation (STEMI) myocardial infarcti Diagnosis 04/06/2020 07:48:51 AM [facility] Surgeries/Procedures Procedure Description Date Indications Data Source(s) ECG ROUTINE ECG W/LEAST 12 LDS W/I&R POCT AMB EKG Routine 04/19/2020 1:31 PM EST Coronary artery disease involving [place] coronary artery of [place]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 pectoris 04/19/2020 06:31:00 PM EST Coronary dylan ry disease involving [place] coronary artery of [place]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 pectoris [facility] Coronary artery disease involving [place] coronary artery of [place]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 pectoris BLOOD COUNT COMPLETE AUTOMATED CBC Routine 04/08/2020 4:31 A M EST 04/08/2020 09:31:00 AM EST [facility] BASIC METABOLIC PANEL CALCIUM TOTAL BASIC METABOLIC PANEL Routi ne 04/08/2020 4:31 AM EST 04/08/2020 09:31:00 AM [facility] ECHO TTHRC R-T 2D W/WOM-MODE COMPL SPEC&COLR DOP ECHOCARDIO GRAM TRANSTHORACIC Routine 04/07/2020 11:59 AM EST 04/07/2020 04:59:49 PM [facility] BLOOD COUNT COMPLETE AUTOMATED CBC Routine 04/07/2020 7:54 A M EST 04/07/2020 12:54:00 PM [facility] BASIC METABOLIC PANEL CALCIUM TOTAL BASIC METABOLIC PANEL Routi ne 04/07/2020 7:54 AM EST 04/07/2020 12:54:00 PM [facility] TROPONIN QUANTITATIVE TROPONIN I STAT 04/06/2020 8:15 PM EST 04/07/2020 01:15:00 AM [facility] ECG ROUTINE ECG W/LEAST 12 LDS TRCG ONLY W/O I&R ECG 12-LEAD Routine 04/06/2020 12:16 PM EST 04/06/2020 05:16:31 PM [facility] CMB CMB STAT 04/06/2020 11:47 AM EST 04/06/20 20 04:47:00 PM [facility] TROPONIN QUANTITATIVE TROPONIN I Routine 04/06/2020 11:47 AM EST 04/06/2020 04:47:00 PM [facility] MAGNESIUM MAGNESIUM Routine 04/06/2020 11:47 AM EST 04/06/2020 04:47:00 PM [facility] HEMOGLOBIN GLYCOSYLATED A1C HEMOGLOBIN A1C Routine 04/06/2020 11:47 AM EST 04/06/2020 04:47:00 PM [facility] CREATINE KINASE MB FRACTION ONLY CKMB Routine 04/06/2020 11:47 AM EST 04/06/2020 04:47:00 PM [facility] LIPID PANEL LIPID PANEL Routine 04/06/2020 11:47 AM EST 04/06/2020 04:47:00 PM EST [facility] BASIC METABOLIC PANEL CALCIUM TOTAL BASIC METABOLIC PANEL Routi ne 04/06/2020 11:47 AM EST 04/06/2020 04:47:00 PM EST [facility] THROMBOPLASTIN TIME PARTIAL PLASMA/WHOLE BLOOD APTT Routine 04/06/2020 9:35 AM EST 04/06/2020 02:35:00 PM EST [facility] PROTHROMBIN TIME PROTIME-INR Routine 04/06/2020 9:35 AM EST 04/06/2020 02:35:00 PM EST [facility] BLOOD COUNT COMPLETE AUTOMATED CBC Routine 04/06/2020 9:35 A M EST 04/06/2020 02:35:00 PM EST [facility] BASIC METABOLIC PANEL CALCIUM TOTAL BASIC METABOLIC PANEL Routi ne 04/06/2020 9:35 AM EST 04/06/2020 02:35:00 PM EST [facility] CARDIAC CATHETERIZATION CARDIAC CATHETERIZATION Routine 04/06/2020 9:02 AM EST Acute anterior wall MT 04/06/2020 02:02:15 PM EST Acute anterior wall MT [facility] Acute anterior wall MT POC ACT POC ACT Routine 04/06/2020 8:40 AM EST 020 01:40:00 PM EST [facility] ECG ROUTINE ECG W/LEAST 12 LDS W/I&R ECG 12-LEAD Routine 04/06/2020 6:35 AM EST 04/06/2020 11:35:06 AM EST [facility] Results ID Date Data Source [id number] 04/09/2020 01:44:15 PM [facility] INFORMATIONPatient MRN Name Date of Age Gend*PT [id number] Cuenca Alexander Jailyn 1940 79 years M IPPT Location Admission Date/Time Visit ID Attending [id number] 04/06/20 0748 --- Rosaline Foley MD([id number]) EPI ID CSN Admitting Provider [id number] Rosaline Foley MD([id number]) Attestation signed by Rosaline Foley MD at 04/09/2020 1:44 PMI saw and evaluated the patient and reviewed Dee Singh's note. I agreewith the history, physical and medical decision making.Signature: KORY Jamesate: April 09, 2020Time: 1:43 PM Physician Discharge Summary Alexander Glaser JoellenN: [id number] date: 04/06/2020Attending Physician: Rosaline Foley MDAdmission Diagnosis: [...] at home 24 hours. He presented to [facility] with a 2-day history of intermittent chest discomfort. He describesmidsternal chest pressure and mild nausea. No other associated symptoms. EKGrevealed anterior wall ST elevation. He was given TNK at 4 am earlier todayalong with ASA, Plavix and heparin IV.. Transferred to [facility] for a urgentcardiac catheterization.On arrival he [...] denies any known cardiac history including CAD MT or heart failure.Denies any orthopnea, PND, lower [...] Course & Complications: Patient was admitted to [facility] followingemergent cardiac catheterization, see results above. He tolerated the theprocedure well and was initiated on guideline medical therapy. Peak [id number]. He was monitored on telemetry throughout his [...] Get Your MedicationsThese medications were sent to [facility] [address] [place] [address] albuterol 108 (90 Base) MCG/ACT inhaler aspirin [...] rce(s) Supporting Document(s) ID Date Data Source [id number] 04/08/2020 06:51:19 AM EST [facility] Name Value Range Interpretation Code Description Data [facility] rce(s) Supporting Document(s) SODIUM 143 mmol/L (136-145) [facility] POTASSIUM 4.3 mmol/L (3.6-5.2) [facility] CHLORIDE 104 mmol/L (100-108) [facility] CO2 34 mmol/L (22-31) H [facility] ANION GAP 5 mmol/L (7-16) L [facility] UREA NITROGEN 24 mg/dL (7-24) [facility] CREATININE 0.64 mg/dL (0.80-1.30) L [facility] BUN/CREAT RATIO 37.5 RATIO (10.0-20.0) H [facility] GLUCOSE 80 mg/dL (70-99) [facility] CALCIUM 8.8 mg/dL (8.4-10.2) [facility] GFR >60 ml/min/1.73m2 (>59) [facility] GFR ( AMER) >60 ml/min/1.73m2 (>59) [facility] GFR INTERPRETATION [facility] --NORMAL KIDNEY FUNCTION OR MILD DISEASE - GFR >OR= 60CHRONIC KIDNEY DISEASE - GFR 15 - 59RENAL FAILURE - GFR <15 Est. GFR calculation based on the MDRDstudy equation, which assumes a steadystate for creatinine. Est. GFR should notbe used for medication dosing. ID Date Data Source [id number] 04/08/2020 06:34:11 AM EST [facility] Name Value Range Interpretation Code Description Data Kathy rce(s) Supporting Document(s) WBC 11.2 10*3/uL (4.1-11.0) H [facility] RBC 4.10 10*6/uL (4.60-6.10) L [facility] HGB 12.8 g/dL (13.5-18.0) L [facility] HCT 37.8 % (41.0-53.0) L [facility] MCV 92.3 fL (80.0-95.0) [facility] MCH 31.3 pg (27.0-32.0) [facility] MCHC 33.9 g/dL (32.0-36.0) [facility] RDW 14.0 % (10.5-14.5) [facility] PLT 211 10*3/uL (150-450) [facility] MPV 8.3 fL (7.1-10.7) [facility] ID Date Data Source [id number] 04/07/2020 12:09:22 PM EST [facility] Name Value Range Interpretation Code Description Data Kathy rce(s) Supporting Document(s) &PDF [facility] PCFKHa2bWqAXFbFy99/PQZgtXVCof7LiVNmhPMk8JAwbWONyX3NxzPbxBOCXDyXkUaeJSE7GXSqKK0qH 0b3 [file] ICAgICAgICAgICAgICAgICAgICAgICAgICAgICAgIC AgICAgICAgICAgICAgICAgICAgICAgICAgDQogICAgICAgICAgICAgICAgICAgICAgICAgICAgICAgIC AgICAgICAgICAgICAgICAgICAgICAgICAgICAgICAgICAgICAgICAgICAgICAgICAgICAgICAgICAgIC AgICAgICAgDQogICAgICAgICAgICAgICAgICAgICAg ICAgICAgICAgICAgICAgICAgICAgICAgICAgICAgICAgICAgICAgICAgICAgICAgICAgICAgICAgICAg ICAgICAgICAgICAgICAgICAgDQogICAgICAgICAgICAgICAgICAgICAgICAgICAgICAgICAgICAgICAg ICAgICAgICAgICAgICAgICAgICAgICAgICAgICAgIC AgICAgICAgICAgICAgICAgICAgICAgICAgICAgDQogICAgICAgICAgICAgICAgICAgICAgICAgICAgIC AgICAgICAgICAgICAgICAgICAgICAgICAgICAgICAgICAgICAgICAgICAgICAgICAgICAgICAgICAgIC AgICAgICAgICAgDQogICAgICAgICAgICAgICAgICAg ICAgICAgICAgICAgICAgICAgICAgICAgICAgICAgICAgICAgICAgICAgICAgICAgICAgICAgICAgICAg ICAgICAgICAgICAgICAgICAgICAgDQogICAgICAgICAgICAgICAgICAgICAgICAgICAgICAgICAgICAg ICAgICAgICAgICAgICAgICAgICAgICAgICAgICAgIC AgICAgICAgICAgICAgICAgICAgICAgICAgICAgICAgDQogICAgICAgICAgICAgICAgICAgICAgICAgIC AgICAgICAgICAgICAgICAgICAgICAgICAgICAgICAgICAgICAgICAgICAgICAgICAgICAgICAgICAgIC AgICAgICAgICAgICAgDQogICAgICAgICAgICAgICAg ICAgICAgICAgICAgICAgICAgICAgICAgICAgICAgICAgICAgICAgICAgICAgICAgICAgICAgICAgICAg ICAgICAgICAgICAgICAgICAgICAgICAgDQogICAgICAgICAgICAgICAgICAgICAgICAgICAgICAgICAg ICAgICAgICAgICAgICAgICAgICAgICAgICAgICAgIC YvVLMcWVLuSHDqLLBhPISdSXZuVBKeTMOdEUOkEOImSLWuLKj7J0xgJPMlVKLnBN6aIHq2Vq8+DQoNCm PiXMY5glVccB9HEJ5ub2FpOYzkLBDfp9ItEGm5LC7ANAGkTQqcWH6CDYtfox4EKDHhFLGhwWJWa0veIu PzFFP9TDMjEbaiRM6BYUGaQ6ogvuHqCZVwHYFICSfd QLUKFLypLXLCDFHwIIBqMaIlRPjfVM9Zd7GceXY6EFn+Qe5HPG8we2EhRLn7NqIoMP3pqg0WCVnUXgUx P7S2fNTbW5B2SUyeLa2YORAyVORbCQNmARXNJUjaMP7NVK0nrxX8LG2JvEIsPJFmZLYmsLImURa6A79c bYFrGMwcBY5OOVT+Renato+Xi5ZDEDqVSMkKJNqDrFfXN XXLyBmF73pbRCcPWIxEIFsECSgHj1VVVTpV2VpgxOsfFdrcwFrVOHxHRQKSP2KHUxptsDsiWUhlEqvFW 00kSxyRS3AWb9NNkNdTH8nwx0PkFRcCu2EXAH2Rs4TZEXmPSBjKABtZZQ3XNZhVvZnSTqlUOPyZBVsPH B2RUSxQRNfOM8BAiUmRFFrLlvmBWAdROIuSMNoeu7A XPBhLVM0SWDeLwZmSMLeOJCaBZseNBLnANWqTIu8DENnIKZwSI4ZPaWtBAOaYTXpYLLlSNPvRIPaeo9J XPTkAGAqKuB7JhQdPWAhPVPmLPudXEUvUAM7DBS4BIMiJARuST0TNxItFOCvHNMxCQDiZEQhZZHpbf6W RACqJVTxPsEcWCGtOVYkEFMjCUwpIAUqKTN8RmC3NX ZvTQVjBM3QOaKnXBXvROa7CoegYEAfSURlas9TYIDeVOHwOHR8XhWcLLIdNKYkVTfzNOKyOWVyLIOzZE BwONFwRZ7HEdFzZJJqJOPzWdIbGQIaHTGucb9PPAXgNYUbGTYrKyUxGAInSKSoAEcyAMMrFEDzUwjhHB IdCHYrPM4HGcQnFCQcAWY0LbXtMKJmBCBvlk5WNXOt GPAnHNf5ZyBrZSKsLHSsZYkbUWCuXDMmSkDpJDLaXONjNF2HAkQaIJYiPST5QAgwYPSjZYOyrt8SPTNa UGUpRmXgLjUzRCVeMXRnXYilXJVaTUT9YPAxSRVqMAIdLR5FTqXrMORzSUHtVyJhJXHsJPZoga9EWFKd JMJtZGJ5GAJfHUFaRQGvOWywJTVzNKW1FPM0HHIgOU SfPR7CXzApKDFcLmO7AFWrEIFdUYBokb5NSMQiYBQlKAQ6GzBxEKCtCFKvDIyhKRPeGGV0XPjvOHNyKL NgKV8RBuMlIZUuNaY2LDdzYRChHGDcxw7RCQOtPWBjJpMwFKFkHELrPAHzBGglZNOiXBE2ZwS3NUIzHQ IwJX4JLnPbWLPtNes5HtrhPGFhFIVkux5ZRTQxAQR0 ZRf3RiKoAZPtGSKhLOaoFSRhMDU0ZhT9GBIvRLIoEI1XSfNoHTGfUQt9LBiiBZMjJRAngg0HTMSnQZK4 RfKaVUPzODKsGFIbVPlcWJYgALZ4FXodYVPhFZEeBX9WTqTeCZLwFbSgBlrzXZFuVLLcml3QRVGlBDO3 IOelWTJdLXWoJAOzEPaoYUDjYQM4WLv6CULmUUVeOQ 4EUsKtXUEyTha5IDOeXAGkYNScpt0JRSGgTTU7UUD6GZBeMMSlMAPmEVc3qiJxeDXfIVg2XH9NI3Xnmc AnVQMOXf0Gu610HGZyKDAxQy5SG6feFp7oHMJvZRCSCo7BBLk3VwQ4ZVJ5XZXaEAcwS1BmBWKjGCz9Iq G1DIUaQHJrEzi+HWy5LSAfFhu1ZqT0BFG5UoIgSNO2 BFElGAD8IaHjBIMwUM7kVUAAHb4+XNuihTAwqFwoQMXOLgmiQLD3GUpyZCELEy0N ID Date Data Source [id number] 04/07/2020 11:04:58 AM EST [facility] Name Value Range Interpretation Code Description Data Kathy rce(s) Supporting Document(s) SODIUM 141 mmol/L (136-145) [facility] POTASSIUM 4.7 mmol/L (3.6-5.2) [facility] CHLORIDE 103 mmol/L (100-108) [facility] CO2 31 mmol/L (22-31) [facility] ANION GAP 7 mmol/L (7-16) [facility] UREA NITROGEN 20 mg/dL (7-24) [facility] CREATININE 0.70 mg/dL (0.80-1.30) L [facility] BUN/CREAT RATIO 28.6 RATIO (10.0-20.0) H [facility] GLUCOSE 77 mg/dL (70-99) [facility] CALCIUM 8.8 mg/dL (8.4-10.2) [facility] GFR >60 ml/min/1.73m2 (>59) [facility] [place] GFR ( AMER) >60 ml/min/1.73m2 (>59) [facility] G[facility] INTERPRETATION [facility] --NORMAL KIDNEY FUNCTION OR MILD DISEASE - GFR >OR= 60CHRONIC KIDNEY DISEASE - GFR 15 - 59RENAL FAILURE - GFR <15 Est. GFR calculation based on the MDRDstudy equation, which assumes a steadystate for creatinine. Est. GFR should notbe used for medication dosing. ID Date Data Source [id number] 04/07/2020 10:17:01 AM EST [facility] [place] Name Value Range Interpretation Code Description Data Kathy rce(s) Supporting Document(s) WBC 12.3 10*3/uL (4.1-11.0) H [facility] RBC 4.05 10*6/uL (4.60-6.10) L [facility] HGB 12.5 g/dL (13.5-18.0) L [facility] HCT 37.4 % (41.0-53.0) L [facility] MCV 92.2 fL (80.0-95.0) [facility] MCH 30.9 pg (27.0-32.0) [facility] MCHC 33.5 g/dL (32.0-36.0) [facility] RDW 14.3 % (10.5-14.5) [facility] PLT 235 10*3/uL (150-450) [facility] MPV 8.4 fL (7.1-10.7) [facility] ID Date Data Source [id number] 04/06/2020 09:46:56 PM EST [facility] Name Value Range Interpretation Code Description Data Kathy rce(s) Supporting Document(s) TROPONIN I 42.50 ng/mL (<0.05) [facility] [place] Less than 0.05: Myocardial injury unlike lyGreater than or equal to 0.05: Highly suggestive of myocardial injuryCorrelation with rise and/or fall ofserial troponins, clinical symptomsand ECG changes is necessary.ALERTED CRITICAL RESULT ENEDINA (31534) [place] [address] ON 04/06/20 AT 2143 [place] [id number] ID Date Data Source [id number] 04/06/2020 12:45:02 PM EST [facility] NT INFORMATIONPatient MRN Name Date of Age Gend*PT [id number] Alexander Cuenca 1940 79 years M IPPT Location Admission Date/Time Visit ID Attending [id number] 04/06/20 0748 --- Rosaline Foley MD([id number]) EPI ID CSN Admitting Provider [id number] Rosaline Foley MD([id number]) Attestation signed by Rosaline Foley MD at 04/06/2020 12:45 PMI saw and evaluated the patient and reviewed Lulu Jarrett's note. I agree withthe history, physical and medical decision making with the following additions,exceptions, and/or observations:Patient presented her earlier this morning with intermittent chest pain for 2days, and more consistent chest pain over the last 12 or so hours. He wasevaluated at [facility] and was found to have an anterior [...] CodePrimary Care ProviderReferring Physician: Dary PCPRosaline Foley [facility] Complaint: Chest discomfortHPI: This is a 79-year-old gentleman with severe COPD on 3 L of O2 by nasalcannula at home 24 hours. He presented to [facility] with a 2-dayhistory of intermittent chest discomfort. He describes midsternal chestpressure and mild nausea. No other associated symptoms. EKG revealed anteriorwall ST elevation. He was given TNK at 4 am e jhoana today along with ASA,Plavix and heparin IV.. Transferred to [facility] for a urgent cardiaccatheterization.On arrival he [...] denies any known cardiac history including CAD MT or heart failure.Denies any orthopnea, PND, lower [...] file Gets together: Not on file Attends protestant service: Not on file Active member of [...] mg Oral Daily diphenhydrAMINE 25 mg Oral [employer] Professor Influenza Vac Split Quad 0.5 mL Intramuscular [...] Name Value Range Interpretation Code Description Data [facility] Supporting Document(s) ID Date Data Source [id number] 04/06/2020 12:44:40 PM EST [facility] Name Value Range Interpretation Code Description Data Kathy rce(s) Supporting Document(s) EKG [facility] XRBWXz4nVaWGBiIfc5IhRgIgMPZtDS6wbjb6U4U5zEOnM0YuwWWbm2xkJ7GvM4DdXSUaKYWAKJ1SpXMk jb2 [file] Madiha/benK6RHMI994D/0fNuTLgzLw1otzWu8Qkpyh0opeUTthdMuLqTSzx3PGBM/utnTk2m4cmTQ/sSs 7FYh5VR6L/yJJB7+vZhTQSaZ8ZabX3FVwIh25Ds70L sg2UVfluIKosZBFnnCfiS/3cNf4cM1MxvpiY+BZ4Fvbf6qBA56dr7kJ5pVABeQ7IEybb+47I2O+4lI5p /aI299qCZBvE/wryvSFRlvl/KH8zf0HbaReEMVhYQb6A+0NHm/4NCJWdp+e71/ck/Eh2MQmS45i4ib/o rwiHg4Y/Ia54e3pAqIa2uR/IlZgHLQlIOmHLSppcne 6PQnsgDTPMqB+hNd/Ymu/aViS1n4rRJBFNRsywe5G/Ku4wD+RBNWcgQQ2ytC+hMd/pCrGCXyuUNul0gp 26AMYL1ZiMTo8NMdzLBwjQh8rQ6lrQXfL/ypAB/iU/CcYViuE5HGcbn5Kf98VbRy+hiKiF/VKGr6MG3e K0GfzwBL+4UeOm6Xc+jqT/Br15BySPjmip6d+NJ8fo k5Cx2btcAcSHBMjy+mR4OJjZsIsR/Motor Vehicle Emissions Inspector/jWXd87+5Rzo8+ruPBfKHbk3jcw0zdXl5rqUJ2Gaz+b4RBA4P [file] rdTA3hMrk76kasP4nO2lDKnxGstHoHI56YdwEooefpBKyiQGP0THLMvMti3MC2PT137euaGk9+web content coordinator+s FNCnnfR7T4Xj9TeumlEwXKziBlf+1F3I0E06mqwr9kw3Ql+cvG4GLY50TS7MbSCW/4wT1eIscUN/rFEe nlPICcqAsvxmPRhRfjscQQVsaoqozHoltDxmORpSDj [file] SfoUN95JRi8BV2tvRX5rZYA2hF3tAlk85fb1w51dxZR0+nCt9595zC25l7r95dYWt+9Mq6nK13F7+8e3 T0rsf1lwzl5gjZ2I/C50TKaQWzV5qmQ1mN8o0iLtu9 sjk3hw3y5cge1Y/eMS5yjpvJ0+2y4lAe57+jUy7As9uIv3wiie99k/by+iutgwd+0rse7hoD4k2u5Gl+ S427sbJDs3MW32+t2j7hOwqDnrCl1AsU50Z41DpV4QhbX47M3GW3nbV878Tq88Ptjf1vVfm0xzY325B8 jweB18yzw3ia28ng0e6I7Cwy+FciPV/f9cs/n17dXN 0vGe78lQiXeqXzQY4/ch22BF3/+gpQ4AvYW4bqD3iah9o26laoljYw0uhBP1VnA7YXL3355+c0253By/ nn6Q+v//Lp3W/fnl68e/P3129/Gk73bOL+2akgqU1+OI+H20S3hw8Vcchx/ZK075bC/5I6D5ZJdJ6n82 9//8x34bWNPnaqqW2/E/Hvl6Y18qgj6k4JRpI+0o7v ib2xgIP3SjvR3+gmYz6JTHFQsrro27jBpL/Pz87p+WGAc8vr9bGh8P/ffvo0c/KodPz374+k3499F/cu Qc0s0ja+3PGriHWcgZfP3DkG0vN81O7HRvroQ4Gw47rbftr56xJ1b0+vP7+95/6ti4Pc2ynfiXbJ726s d/6q/NK7K1/dnN59+Pz203+//gBo5q5X638fhtb9r2 b38U1trw+//OMc+3iGV511X9+0+7G1DVcbn+6+/8LwS36hcSXqT6tjm3f7B1UJBscBnnZ9np3/H0L3oK J4sccDuA3ZuatgXgx2gTr9/T9v79/qp26jQ8ys5x0/+mm2yW16/oz/fnyZvKX/4dW/Th5nUUDfvP2/vH 5wOQjq/Pl0phmas43/62Igv7dyRr23a+cXy8oKe//x 6dAj810/+MLe7+Gl3iSM2ww575/+2TGdw6bPH88/zMTPHjyvYVO8Eq/66wE7rueaHbaSTx2M1ew2v//w 1c67nrv/6qZvr2yGHeuzCe5M4T5Tt/7m+uPn0+3bX9+++pw2o7qAvwcPyIYxL9Mh3123zvxez2175Ohg biZo1xQT6PD0hhDgQ3DOs0rCrtxkpVEK42imp8roQB 6p1HGsIo3+/CJE57Pxx+ZELALEM+Q1eU3b//xzBcdAHOeBhDUU3ukXnoQefbmOdElzWIHizLWBqNjn0KO2CaT XfVXRcC5B0CYZrqz3zLCSoRMRirKPgSzCxTHJBJL4WaZXvLQ5ZMIt1AMPzXBGoJjPeYSIvczO6MVHdSZ IzTMMmR3ZmlzPfsZAsQFBpRl9+QI9sp4TqRnDbWHTx Mut8UT6ZoLKyPI1DlUPxeG5fhlYiK057ymPoKXOcCwlfy1AoPQswEZVXUN2LCZQ9YQI5EGSxKb1+ZW5k p5XgNqIpHUOnKem3JG1IeTAns2CrFI5GS3ScLATcYQPSPLX7f1TzRZLsrwgaaaajV2UvGJG5pN9oBBC9 ZSAoRDoyMDIwMTIzMTEyNDQpIAogICAgICAgICAgIC PhTCz0uIRhLC3AJ9EyFAEjQHEDHVIakcFyRw8nAGPHQzFkSPQKS6FVTpFrRXV8IKytAhJePJ4EwTMrLS C4XVbEHMZJUDnOVYefGwVtc7P6VQFuT8WeFYCkafLoNRURKRbaBwdoYU9daCsodvlrJ7PyqDAbTGMAMF PmCCRmCHJpTLUxT4Cyu3Z9Y2VaVYuYWXKDNCuQHNrx ZwS1d78ievIUZLRfUITtDK4+FM9vv4WtHs6DGFYxJF4mgvr3TU6KcKCqWH9CQBalmuBrK8asvmVeNrXd QRFACF6bH3UkaT88KPK+HpDoBY1hncx3pqKbDxJtPXWyTBDlJZJiHVunLGPoENMkKMRpONN3CAS7OUIu RhQwRFGeZDd7LJMhGKFpGTYkjmAUEEXvIWWgVQI7BE XrTGQvVIPuDXxzOJWjCHV8TTQ7UOFkJWUzIL1kOqIcRQUaOHEnIJOvPiK6FiBvNoDHCCJnCELlQHAwJq CkSZYmICHdNWigAZQmQVOzGHt0WCQgTYPoYE2mZxAoZNXzKKSoYSLhYQUnCXPtcbJZMZUwDMYvESO2CS FzOOXyNCMoMGumSRSfHNPmOSS5CPCeTOEqVT8dGcBh UXBwEWH6BgJfCIUcJGRdewNYFWLbHWGbLYE6XQEeBYVyUARoGEzxAFXyORJdUeJ5YYNlPRVqCZ9qAaDz OJOsMTM5ZYTqJREsFCGkjfJEBXQvIYVtNPr6KvEhDPYnSZBvROtrXTBhTQOnYHvsTJFdDNDcDZ8iJkWg CHOqGVOkCXUkODErGFKqwuSBZBMgLETvTAI8KkFqOM OoRLMeYKpdQURjAEMnUGY3ZARaPHWgSC3xJqOaSKJwAGkyKapjJQQkEWWuxgQXEMOuXOIaWXNlUCFsOY CqRGZfILbdXEHkGGKwHcW4SURgCPLnMY2iYtBiCWKgZOQ9YGNaGNQcRRXuerRBCKKoYHRqZLOyIXP0KH PfRVDxZCk4xlBddGWjVji5Vo8JgWfqBRW2Zd1JadGr MMGgCDZEVi0Jw932UKLqEJUBEwi+DexliOMyxXjpHWMUJGH3EDFdEqGvUX6C ID Date Data Source [id number] 04/06/2020 03:29:30 PM EST [facility] Name Value Range Interpretation Code Description Data Kathy rce(s) Supporting Document(s) CHOLESTEROL @ 154 mg/dL (0-200) [facility] TRIGLYCERIDE @ 78 mg/dL (30-200) [facility] HDL CHOLESTEROL @ 79 mg/dL (>40) [facility] PER NCEP ATP III GUIDELINES:RESULTS LOWE R THAN 40 MG/DL ARE SUGGESTIVEOF INCREASED RISK FOR CORONARY ARTERYDISEASE. RESULTS > OR = TO 60 MG/DL ARECONSIDERED A NEGATIVE RISK FACTOR. CHOL/HDL RATIO 1.9 RATIO [facility] INTERPRETATION OF CHOL-HDL RATIO CHD RISK FEMALE MALEVERY HIGH >8.3 >14.3HIGH 5.6- 8.3 6.7- 14.3AVERAGE 3.7- 5.6 4.0- 6.7BELOW AVERAGE 2.5- 3.7 2.7- 4.0PROTECTED <2.5 <2.7 LDL CHOL (CALC) 59 mg/dL (<130) [facility] PER NCEP ATP III GUIDELINES: OPTIMAL < 100 NEAR OPTIMAL 100 - 129BORDERLINE HIGH 130 - 159 HIGH 160 - 189 VERY HIGH > 189 ID Date Data Source [id number] 04/06/2020 02:09:50 PM EST [facility] Name Value Range Interpretation Code Description Data Kathy rce(s) Supporting Document(s) HEMOGLOBIN A1C @ 5.2 % (4.0-6.0) [facility] Performed using Siemens Fleming immunoassa y.Care must be taken when interpreting MjK2gyfntpfr in patients with a hemoglobin variantor decreased erythrocyte lifespan. Values 5.7 - 6.4% suggest prediabetes.Values >=6.5% are diagnostic for diabetes.REFERENCE: DIABETES CARE 2018: 41(S13-S27).PERFORMED AT [address] [place] [address] EST AVERAGE GLUCOSE 103 mg/dL [facility] [place] ID Date Data Source [id number] 04/06/2020 02:09:50 PM EST [facility] Name Value Range Interpretation Code Description Data Kathy rce(s) Supporting Document(s) CKMB 222.6 ng/mL (0.0-5.0) [facility] ALERTED CRITICAL RESULT TOROSE(205)[place]5 [place] [address] ON 736982 [place]6 [place] [address] CKMB RELATIVE INDEX 19.0 {index_val} (0.0-4.0) H [facility] ID Date Data Source [id number] 04/06/2020 01:47:55 PM EST [facility] Name Value Range Interpretation Code Description Data Kathy rce(s) Supporting Document(s) TROPONIN I 117.00 ng/mL (<0.05) [facility] Less than 0.05: Myocardial injury unlike lyGreater than or equal to 0.05: Highly suggestive of myocardial injuryCorrelation with rise and/or fall ofserial troponins, clinical symptomsand ECG changes is necessary.ALERTED CRITICAL RESULT TOROSE(205)[place] [address]51 ON 710816 AT 1345 [place] [id number] ID Date Data Source [id number] 04/06/2020 01:47:55 PM EST [facility] Name Value Range Interpretation Code Description Data Kathy rce(s) Supporting Document(s) CK 1173 U/L (39-308) [facility] ALERTED CRITICAL RESULT TOROSE(205)[place] [address] ON 194949 AT 1345 [place] [address] ID Date Data Source [id number] 04/06/2020 01:44:16 PM EST [facility] Name Value Range Interpretation Code Description Data Kathy rce(s) Supporting Document(s) SODIUM 142 mmol/L (136-145) [facility] POTASSIUM 5.2 mmol/L (3.6-5.2) [facility] CHLORIDE 103 mmol/L (100-108) [facility] CO2 36 mmol/L (22-31) H [facility] ANION GAP 3 mmol/L (7-16) L [facility] UREA NITROGEN 16 mg/dL (7-24) [facility] CREATININE 0.68 mg/dL (0.80-1.30) L [facility] BUN/CREAT RATIO 23.5 RATIO (10.0-20.0) H [facility] GLUCOSE 101 mg/dL (70-99) H [facility] CALCIUM 9.0 mg/dL (8.4-10.2) [facility] GFR >60 ml/min/1.73m2 (>59) [facility] GFR ( AMER) >60 ml/min/1.73m2 (>59) [facility] GFR INTERPRETATION [facility] --NORMAL KIDNEY FUNCTION OR MILD DISEASE - GFR >OR= 60CHRONIC KIDNEY DISEASE - GFR 15 - 59RENAL FAILURE - GFR <15 Est. GFR calculation based on the MDRDstudy equation, which assumes a steadystate for creatinine. Est. GFR should notbe used for medication dosing. ID Date Data Source [id number] 04/06/2020 01:44:16 PM EST [facility] Name Value Range Interpretation Code Description Data Kathy rce(s) Supporting Document(s) MAGNESIUM 2.1 mg/dL (1.7-2.4) [facility] ID Date Data Source [id number] 04/06/2020 12:16:07 PM EST [facility] Name Value Range Interpretation Code Description Data Kathy rce(s) Supporting Document(s) SODIUM 142 mmol/L (136-145) [facility] POTASSIUM 5.1 mmol/L (3.6-5.2) [facility] CHLORIDE 104 mmol/L (100-108) [facility] CO2 36 mmol/L (22-31) H [facility] ANION GAP 2 mmol/L (7-16) L [facility] UREA NITROGEN 17 mg/dL (7-24) [facility] CREATININE 0.69 mg/dL (0.80-1.30) L [facility] BUN/CREAT RATIO 24.6 RATIO (10.0-20.0) H [facility] GLUCOSE 95 mg/dL (70-99) [facility] CALCIUM 8.8 mg/dL (8.4-10.2) [facility] GFR >60 ml/min/1.73m2 (>59) [facility] GFR ( AMER) >60 ml/min/1.73m2 (>59) [facility] GFR INTERPRETATION [facility] --NORMAL KIDNEY FUNCTION OR MILD DISEASE - GFR >OR= 60CHRONIC KIDNEY DISEASE - GFR 15 - 59RENAL FAILURE - GFR <15 Est. GFR calculation based on the MDRDstudy equation, which assumes a steadystate for creatinine. Est. GFR should notbe used for medication dosing. ID Date Data Source [id number] 04/06/2020 11:56:48 AM EST [facility] Name Value Range Interpretation Code Description Data Kathy rce(s) Supporting Document(s) APTT >150.0 s (22.0-34.3) HH [facility] [place] [facility] ALERTED CRITICAL RESULT TOROSE(205)[place] [address] ON 808492 AT 1153 [place] [id number] ID Date Data Source [id number] 04/06/2020 11:51:16 AM EST [facility] Name Value Range Interpretation Code Description Data Kathy rce(s) Supporting Document(s) PT 11.0 s (9.2-11.9) [facility] [place] INR 1.05 [facility] [place] SUGGESTED THERAPEUTIC RANGES USING INR F ORSTABILIZED ANTICOAGULATED PATIENTS:STANDARD DOSE THERAPY INR 2.0-3.0 DVT, PE, PREVENT DVT OR EMBOLISMHIGH DOSE THERAPY INR 2.5-3.5 PREVENT EMBOLISM FROM MECHANICAL HEART VALVE ID Date Data Source [id number] 04/06/2020 11:31:43 AM EST [facility] Name Value Range Interpretation Code Description Data Kathy rce(s) Supporting Document(s) WBC 11.7 10*3/uL (4.1-11.0) H [facility] RBC 4.16 10*6/uL (4.60-6.10) L [facility] HGB 13.0 g/dL (13.5-18.0) L [facility] HCT 38.3 % (41.0-53.0) L [facility] MCV 92.0 fL (80.0-95.0) [facility] MCH 31.2 pg (27.0-32.0) [facility] MCHC 33.9 g/dL (32.0-36.0) [facility] RDW 13.8 % (10.5-14.5) [facility] PLT 246 10*3/uL (150-450) [facility] MPV 8.0 fL (7.1-10.7) [facility] ID Date Data Source [id number] 04/06/2020 09:05:09 AM EST [facility] Name Value Range Interpretation Code Description Data Kathy rce(s) Supporting Document(s) &PDF [facility] BOEXFl2nKiSTXwXa55/KZXbnQHRge6DtMQdrVWy8LNxbSBBcB5DdvRzzUBFMGsUeWlkHIW8HDPgRT1lR lYX [file] UtZlyHKv9oWbTHm2KwD0/arpklLXS//vStPTZfWW/aL9NPEdWvVV1rqEm/KutXA/sXCLUauq/eJJ++Motor Vehicle Emissions Inspector EXE6Dd6h1819Dbon52kCUWpU/86NLKnM51BC24rT8h [file] ICAgICAgICAgICAgICAgICAgICAgICAgICAgICAgIC DoLJMxEQYfURInWRMbHZVrKXBjZCWzOVWpOPLhKFHcKXHjRKTmRSWkYVBmBCGqZJGhVZRnCUJjNQ1BHF AgICAgICAgICAgICAgICAgICAgICAgICAgICAgICAgICAgICAgICAgICAgICAgICAgICAgICAgICAgIC AgICAgICAgICAgICAgICAgICAgICAgICAgICAgICAg IXYwASHvNT2RUMTrUJQpNZHuGQBdBSCaJBJaZDYtZKJdGEPePOWpIAEeIJGjAHQoFARmXLOqLZXvYITm DHHrZIElLUKcLIMkJBSnBVOkNVIzFCXpRVPuHZFoVWTpIDMmOFKxTAHgYUQsPNJcNL6GWHWkTQBzQTKx ICAgICAgICAgICAgICAgICAgICAgICAgICAgICAgIC AgICAgICAgICAgICAgICAgICAgICAgICAgICAgICAgICAgICAgICAgICAgICAgICAgICAgICAgICAgIA 0KICAgICAgICAgICAgICAgICAgICAgICAgICAgICAgICAgICAgICAgICAgICAgICAgICAgICAgICAgIC AgICAgICAgICAgICAgICAgICAgICAgICAgICAgICAg PKGnSTWtOJElLA8YNPXtSQDeYTFhUCYvMZGvPFXiATDqEOZhAXVjWWKyHBDyAHLcKYLfRXEwYPKqVCTg PYPwDJOkQLTmUBRtAXMlCWVcEHIwRJLvBCXaFWCoORJsQLDfOULtLJKuWWBiSDPaZDMeTH1JLLWgOYZu ICAgICAgICAgICAgICAgICAgICAgICAgICAgICAgIC AgICAgICAgICAgICAgICAgICAgICAgICAgICAgICAgICAgICAgICAgICAgICAgICAgICAgICAgICAgIC VmNQ9IPBFbFBPpSWToFOIfEDSrKVWpXQByCYNuVDCjEWZaQBSdGAFmSMQvJNDaALBgUOWrSGApLOCtLO AgICAgICAgICAgICAgICAgICAgICAgICAgICAgICAg ATInFIWaHZZkKZTcKT9UUOSdJDKqGOVwNMTwPVBxSRElLEFuLPKtQFNsAVXuQYMfQJUzEGZrRUPiUCBo GIZeVHVtSSNsIRWxQUIpRJHkGPTpASFdBTCbSVPmSHGnRZIqUTJjZNCpFRIyWIHcPEBgYUYkIR1UIV16 rBFsd4S3ICPoWO2onwq/Cj1RZYqupbRhhFMeNF1YWc MvIY2qtb7ZQnMoFN9nwo1BWGxLPdQeN1M7mBNzORFdYLRFGtDxQ32lWGljQc05FLexZZKqBxObYVj1Pm 4FEgPqX3ehOSRbSoF2PPLaLiY3GRPzMmZ8OUHmNhCjAQRyGTRmZXGxQRMOVCB5EDNnGiXaTWmbIL7Qv8 TjrVL5BDr+Ea3HBM7os6AlVNnbBYOmRJ5zvk1YJFkV WqNuO4YpnxT2VBTkQYWaOa8DRTTcAKWrtZLiTAEvPXUWRcCbN6HfvC47BHTLWo9+DQplbmRvYmoNCjMx DIZzm6SdJHj9DW9CCUDyNAa6iNAiZQ4zoZNrjBVbBGkiRC4BDVB0WMpfPcTlWZMwM3yWWqVkKEFmRHKh nZeeIL6GFwWwO6QpwuJmkJWnXPQsBQAWRn3+DQplbm RuExyXAhQhHUBta2LcNNx7FO1DXHPjZYipAD6YFXPtxX9fZEbyWB2ZVrHzVQUkRBXEWySvS81xsYHdCJ v0W9JvOyHjOKMaKykzDFZcHRdmBrHfONSzEsSmNYwyVU8+ID4+GJotZO9RXNfmjkQoSNYzWt5NLGVcDV NrSF8rGZMyMBBnM4X4jCubJRQRSwKpG7akftkuCA3a IQSjW369fIxqaqBoFQOgJBKxJd9SZXYySDQ0GUXmqDYyYvomSXYQZZlzLG5IgOUgCFN1dN6rIYjoEOGc NVSuI5aOVuSnfYftVR72uSdgkrPhgNBuJZt+Yq6KZN7us1RfRVo7upHlDChrKPBjVBvrGZWtJRFdZJAw YUF1JKA9PPYGZxXwXHXzKTHuNOhnLLMaFITtzp9DWX NcMRC6DnplWzWbXSVpBQOjUAtrLBAvVVN3DhR5DQKqPTLsMP0WRyTcVONzIDBiQMNlUJNhQTXpzk3SJA GkOADuEeJ9BdCzJXUhDSSqQJdzWGJyNCLjTaz3TBKqGMUfGH7VNoEoRYHdJCFuMcMpNRWyYWNapj7QAT ThCOXpTKP3MqSnAGQoGOMtSLiyTQKsUDY5BEX5TXDx ETNqNR6ILwUmAFMzFJtbWwepQSQjDJLqeb7WENOvZJSgVLS0JLZtSLGfMJTqWTcaGKBzKTP3WHmhPHHi SDPcMS2SHiXcEIAoZARvWfPsKLBqTCPcbw0ZEMClUXPdKLQqTLYxTELjPDJyUNxfPYXhGQKrDDX9FJJg YPFwBN8YHuTlCUEjQJCrMtVmOMYoWUNiqn1BNUTtYB RaHXQnMZRqGXWaXVJfNOoqJVZiFON9NvGuLSDkOPAySY3AJjBxMJPtCKI2JEZmSJFzFRLoxe9TTXLbKR MbONH0TYMyWXHrPBKdIVomUXPkXPK7Rdo6GDTtLMUbES2KCwFuTWIjAUI4CiIkMZMjCPGjbm4HMYDkBH EfEOn2WTDgNGNqVNAqQKslSORdSVE0DzP2BUIzMRIh HQ3FIdTmGOXmXbO7KMLdPQIiXGVxbe7MTFZeKWI2JZlrAfCgXTUrZJWaPIkzHTDnSNV9GOKbBNVsEWBh WE3FRnAzTGHyPmX7HTIqBEFhKHLvwd5YSMEgNPP6PeG2HzRiZSFoMZFuEWsdIJSePGS5ReW2VVKdSDCp MA3KLvYmBTFtJmq8RwfzREZtEFDffq1GDGGyIOS0LH zcVFHdUHAoPGVyORz6gaRyqGLjMBy3HU5PZ5SujfJiWuLZTr7Un219QXVtTQGeAh5YT8ekPn0hCGVrSX PADb9AQFb7PJveEBO2GGFjQuHlPbCfBYNiNENdHzD0XIHbVAdqHTL+GZiyICG6IQlrX5P4ZLK0FEN4D9 KyCtLxUMhmPfHnNHG9KG7hJHUWOa9+UMdqvTZxhKivTFGRVyH6YIjrFIunVUUXUz2D ID Date Data Source [id number] 04/06/2020 08:53:27 AM EST [facility] Name Value Range Interpretation Code Description Data Kathy rce(s) Supporting Document(s) POC ACT 263 s (80-140) H [facility] PERFORMED BY [facility] ID Date Data Source [id number] 04/06/2020 07:56:23 AM EST [facility] Name Value Range Interpretation Code Description Data Kathy rce(s) Supporting Document(s) [facility] [id number]7C4U9jTSrX0KjvOOub9vhX3CeG9ZlWUSyZOKIZZ9CrFWh jb2 [file] [id number]+Mary Beth [file] [id number]== ID Date Data Source [id number] 04/06/2020 04:03:00 AM EST [facility] Name Value Range Interpretation Code Description Data Kathy rce(s) Supporting Document(s) SARS coronavirus 2 RNA [Presence] in Res piratory specimen by BONITA with probe detection [facility] This lab was ordered by [facility] a nd reported by [facility]. ID Date Data Source [id number] 06/14/2019 10:34:00 AM EDT [facility] ([facility] Name Value Range [...] Serum or Plasma 16 IU/L 0-40 [facility] ([facility] Alkaline phosphatase [Enzymatic activity/volume] in Serum or Plasma 122 IU/L 39-117 Above high normal [facility] ([facility] ID Date Data Source [id number] 06/14/2019 10:34:00 AM EDT [facility] ([facility] Name Value Range Interpretation Code Description Data Kathy rce(s) Supporting Document(s) Leukocytes [#/volume] in Blood by Automated count 6.5 x10E3/uL 3.4-10 .8 [facility] ([facility] Hematocrit [Volume Fraction] of Blood by Automated count 49.2 % 3 7.5-51.0 [facility] ([facility] Erythrocytes [#/volume] in Blood by Automated count 5.14 x10E6/uL 4.1 4-5.80 [facility] ([facility] Hemoglobin [Mass/volume] in Blood 16.0 g/dL 13.0-17.7 [facility] ([facility] Erythrocyte mean corpuscular hemoglobin [Entitic mass] by Automated count 31.1 pg 26.6-33.0 [facility] ([facility] Erythrocyte mean corpuscular volume [Entitic volume] by Auto mated count 96 fL 79-97 [facility] ([facility] Erythrocyte mean corpuscular hemoglobin concentration [Mass/volume] by Automated count 32.5 g/dL 31.5-35.7 [facility] ([facility] Platelets [#/volume] in Blood by Automated count 340 x10E3/uL 150-450 [facility] ([facility] Erythrocyte distribution width [Ratio] by Automated count 14.0 % 11.6-15.4 [facility] ([facility] Monocytes/100 leukocytes in Blood by Automated count 8 % [facility] ([facility] Neutrophils 70 % [facility] ([facility] Lymphs 21 % [facility] Basophils/100 leukocytes in Blood [...] 04/19/2020 12:00:00 AM EST Not Currently completed [facility] Cigarettes smoked current (pack per day) - Reported 04/19/19 12:00:00 AM EST UNK completed [facility] Smoking 04/19/2020 12:00:00 AM EST Current every day smoker co mpleted Current every day smoker [facility] Smoking 04/06/2020 12:00:00 AM EST Unknown if ever smoked comp leted Unknown if ever smoked [facility] Vital Signs ID Date Data Source UNK Name Value Range Interpretation Code Description Data Source(s) Oxygen saturation in Arterial blood by Pulse oximetry 96 % 96 % [facility] Body mass index (BMI) [Ratio] 17.95 kg/m2 17.95 kg/m2 [facility] Body weight 47.446 kg 47.446 kg [facility] Body height 162.6 cm 162.6 cm [facility] Diastolic blood pressure 90 mm[Hg] 90 mm[Hg] [facility] Systolic blood pressure 122 mm[Hg] 122 mm[Hg] [facility] Respiratory rate 18 /min 18 /min [facility] Body temperature 36.78 Lili 36.78 Lili [facility] Diastolic blood pressure 64 mm[Hg] 64 mm[Hg] [facility] Systolic blood pressure 104 mm[Hg] 104 mm[Hg] [facility] Oxygen saturation in Arterial blood by Pulse oximetry 97 % 97 % [facility] Heart rate 72 /min 72 /min [facility] Body mass index (BMI) [Ratio] 24.03 kg/m2 24.03 kg/m2 [facility] Body weight 63.504 kg 63.504 kg [facility] Body height 162.6 cm 162.6 cm [facility] Oxygen saturation in Arterial blood by Pulse oximetry 91 % 91 % [facility] ([facility] (On O2 @ 2 LPM NC) Body mass index (BMI) [Ratio] 16.9 kg/m2 16.9 k g/m2 [facility] ([facility] Body weight 101.31 [lb_av] 101.31 [lb_av] MEDEN T ([facility] Body height 65 [in_i] 65 [in_i] [facility] ([facility] 5'5" Respiratory rate 20 /min 20 /min [facility] ( [facility] Heart rate 90 /min 90 /min [facility] ([facility] Body temperature 97.7 [degF] 97.7 [degF] RICARDO ([facility] Diastolic blood pressure 96 mm[Hg] 96 mm[Hg] RICARD[facility] ([facility] Systolic blood pressure 142 mm[Hg] 142 mm[Hg] M PATRICIA ([facility] Patient Treatment Plan of Care Planned Activity Planned Date Details Description Data Source (s) 24 HR Nicotine 0.583 MG/HR Transdermal Patch 04/19/2020 12:00:00 AM [facility] Albuterol 0.833 MG/ML / Ipratropium [place] 0.167 MG/M L Inhalant Solution 04/14/2020 12:00:00 AM [facility] clopidogrel 75 MG Oral Tablet 04/10/2020 12:00:00 AM [facility] Aspirin 81 MG Chewable Tablet 04/10/2020 12:00:00 AM [facility] albuterol (PROVENTIL HFA;VENTOLIN HFA) 108 (90 Base) M CG/ACT inhaler 04/09/2020 12:00:00 AM [facility] Nitroglycerin 0.4 MG Sublingual Tablet 04/09/2020 12:00:00 AM [facility] Metoprolol Tartrate 25 MG Oral Tablet 04/09/2020 12:00:00 AM [facility] atorvastatin 40 MG Oral Tablet 04/09/2020 12:00:00 AM [facility] Tamsulosin hydrochloride 0.4 MG Oral Capsule [facility]
[2020-05-11] MEDS: COMBIVENT RESPIMAT 100-20MCG INHALER 4GM INH SCH ×3 (15:34→16:36)
[2020-05-11 15:35] LABS: ABG BASE EXCESS 1.2 (-2.0-2.0); ABG HCO3 29.6 MEQ/L (22.0-26.0); ABG O2 SATURATION 98.5 % (95.0-99.0); ABG PARTIAL PRESSURE O2 138.3 mmHg (75.0-100.0); ABG STANDARD HCO3 25.6 MEQ/L (22.0-26.0); ABG TOTAL CO2 31.9 MEQ/L (23.0-31.0)
--- NOTE | 2020-05-11 15:37 | REP ---
INDICATION: CVA - Nursing interventions must not delay CT. COMPARISON: None. TECHNIQUE: Helical scanning is acquired. 5 mm axial images were reformatted. Coronal MPR images were generated. FINDINGS: Preliminary digital manager style radiograph is unremarkable. On bone window settings, the visualized paranasal sinuses are clear. The bony calvarium is intact. No intraorbital abnormality is seen. On soft tissue window settings, there is mild generalized volume loss. Vascular calcification is observed in the distal internal carotid arteries. Small-vessel atherosclerotic changes are seen in the periventricular white matter of the supratentorial brain. There is a focal area of low density in the left parieto-occipital region consistent with encephalomalacia. This may be an old small cortical infarction. No other evidence of infarct is seen. There is no evidence of intracranial hemorrhage. No extra-axial fluid collection is seen. IMPRESSION: There is a focal low-density area in the left parieto-occipital region consistent with infarction, possibly old or subacute. There is no evidence of hemorrhage or definitely acute infarct. Small-vessel changes, diffuse atrophy, and vascular calcification are also noted.. <Electronically signed by Dio Tenorio > 05/11/20 [id number]
[2020-05-11 15:38] LABS: ABG pH (ARTERIAL) 7.208 UNITS (7.350-7.450)
[2020-05-11 15:40] LABS: BASO % 0.1 % (0.0-1.0); HEMATOCRIT 22.1 % (42.0-52.0); LYMPH # 1.3 10^3/uL (1.5-5.0); LYMPH % 9.6 % (24.0-44.0); MEAN CORPUSCULAR HEMOGLOBIN 30.5 pg (27.0-33.0); MEAN CORPUSCULAR VOLUME 105.2 fl (80.0-96.0); MONO # 0.8 10^3/uL (0.0-0.8); MONO % 5.6 % (0.0-5.0); NEUTROPHILS # 11.8 10^3/uL (1.5-8.5); NEUTROPHILS % 83.7 % (36.0-66.0); PLATELET COUNT, AUTOMATED 285 10^3/uL (150-450)
[2020-05-11 15:43] LABS: HEMOGLOBIN 6.4 g/dl (13.5-17.5)
--- NOTE | 2020-05-11 15:47 | REP ---
INDICATION: trauma. COMPARISON: None. TECHNIQUE: Helical scanning is acquired and overlapping 2 mm high resolution axial images were generated and reviewed at bone and soft tissue window settings. Coronal and sagittal multiplanar re-formations images are generated. FINDINGS: There is no evidence of cervical spine element fracture. No skull base fracture is seen. Cervical vertebral body heights are preserved. Alignment is normal. Facet joints are normally aligned bilaterally at each cervical level on multiplanar re-formations images. There is no evidence of intraspinal or paraspinal hematoma. No extra vertebral abnormality is seen. There are mild degenerative spondylosis changes with degenerative disc disease changes at C3-4 C5-6 C6-7 and C7-T1. There are mild facet osteoarthritic changes. A mild levoconvex curvature is noted. IMPRESSION: Degenerative spondylosis changes. No fracture or other traumatic abnormality seen.. <Electronically signed by Dio Tenorio > 05/11/20 [id number]
[2020-05-11 15:49] LABS: INR 1.09; PARTIAL THROMBOPLASTIN TIME 29.3 SECONDS (24.2-38.5); PROTHROMBIN TIME 14.3 SECONDS (12.5-14.3)
--- NOTE | 2020-05-11 15:53 | REP ---
INDICATION: altered. COMPARISON: 04/06/2020. TECHNIQUE: SINGLE PORTABLE AP VIEW OF THE CHEST WAS PERFORMED. FINDINGS: Diffuse dense infiltrate is seen in the left lung. A nodular density in the mid right lung zone at the level the right hilum could represent a nipple shadow. There appears to be mild infiltrate or atelectasis in the right lung base. Cardiomediastinal silhouette is grossly unchanged. IMPRESSION: Diffuse dense infiltrate in the left lung. Possible mild infiltrate in the right lung base. Nodular density right midlung zone may represent a nipple shadow. <Electronically signed by Santiago Hernandez > 05/11/20 [id number]
[2020-05-11] MEDS ORDERED: methylPREDNISolone 125MG 2ML VIAL IV ONE (16:00)
[2020-05-11 16:08] LABS: ALBUMIN 3.2 GM/DL (3.2-5.2); ALT/SGPT 17 U/L (12-78); BILIRUBIN,DIRECT 0.2 MG/DL (0.0-0.2); BILIRUBIN,TOTAL 0.7 MG/DL (0.2-1.0); BLOOD UREA NITROGEN 67 MG/DL (7-18); CALCIUM LEVEL 8.7 MG/DL (8.8-10.2); CARBON DIOXIDE LEVEL 36 MEQ/L (21-32); CHLORIDE LEVEL 103 MEQ/L (98-107); CPK CREATINE PHOSPHOKINASE 122 U/L (39-308); CREATININE FOR GFR 2.85 MG/DL (0.70-1.30); GLUCOSE, FASTING 204 MG/DL (70-100); MB/CK RELATIVE INDEX 9.84 (< OR =4); POTASSIUM SERUM 5.9 MEQ/L (3.5-5.1); SODIUM LEVEL 143 MEQ/L (136-145); TOTAL PROTEIN 5.6 GM/DL (6.4-8.2); TROPONIN I 0.21 NG/ML (< 0.10)
[2020-05-11] MEDS ORDERED: PANTOPRAZOLE 40MG VIAL (C9113 PER 1) IV ONE (16:15)
[2020-05-11] MEDS ORDERED: ONDANSETRON 4MG/2ML VIAL IV ONE (16:30)
[2020-05-11] MEDS ORDERED: AZITHROMYCIN INJ 500 MG, VIAL MATE ADAPTER 1 EACH in D5W 250 ML IV ONE (16:45)
[2020-05-11] MEDS ORDERED: cefTRIAXone SOD 2 GM in D5W MINI-BAG PLUS 50 ML IV ONE (16:45)
--- NOTE | 2020-05-11 16:46 | REP ---
INDICATION: trauma. COMPARISON: Comparison chest CT study March 13, 2015.. TECHNIQUE: Helical scanning is acquired. 3 mm axial images are generated. Coronal and sagittal MPR and coronal MIP images are generated. FINDINGS: Preliminary digital supervisor reactor fueling radiograph demonstrates a large hazy infiltrate in the left chest and hyperinflation overall. Axial CT images demonstrate advanced emphysematous changes with very large bulla lie in the lower lobes bilaterally. Many of the bulla in the lower lobes on the left are filled with fluid and some air producing an air-fluid level. There is evidence of necrotizing consolidation in much of the remaining left lower lobe. There is a large 9 by a cm hyperattenuating masslike opacity in the left lower lobe which could be parenchymal hemorrhage or hematoma. Multiple small cystic air spaces are seen in the consolidation. There are patchy interstitial opacities in the left upper lobe and right middle lobe. There is mild peripheral consolidation posteriorly in the right lower lobe. No evidence of hilar or mediastinal mass. Vascular calcification is observed. There are small intrarenal calculi in the lower pole left kidney. No fracture is seen. IMPRESSION: Advanced COPD. Extensive necrotizing pneumonia is suspected in the left lower lobe. There is a 9 cm hyperattenuating masslike opacity which could be hematoma in the left lung base posteriorly. There is pre-existing is severe emphysema and emphysematous bleb formation. <Electronically signed by Dio Tenorio > 05/11/20 [id number]
--- NOTE | 2020-05-11 16:49 | REP ---
INDICATION: trauma COMPARISON: None. TECHNIQUE: Helical scanning is acquired in 4 mm axial images were reformatted. Coronal and sagittal MPR images were generated and reviewed. FINDINGS: Preliminary digital cyber operator radiograph demonstrates moderate stool in the proximal and rectal colon segments. Chest disease as on CT study of the chest. The liver and spleen appear intact and normal in size. There are 2 small calcifications in in the intrarenal collecting system lower pole left kidney. A small calcified gallstone is visible. No abnormality is noted in the pancreas. Aorta is tortuous and nonaneurysmal. Small and large bowel loops are unremarkable in the upper abdomen. No evidence of free air. Moderate stool in the cecum and mildly distended stool-filled rectum is seen. Prostate is mildly enlarged. Urinary bladder is intact. There is left colonic diverticulosis. No pelvic or lumbar spine fracture is appreciated. No rib fracture is seen. IMPRESSION: Intrarenal nephrolithiasis without hydronephrosis left kidney. Cholelithiasis. Left colonic diverticulosis. Moderate stool in the rectum and cecum. No traumatic abnormality. <Electronically signed by Dio Tenorio > 05/11/20 [id number]
[2020-05-11] MEDS ORDERED: PIPERACILLIN/TAZOBACTAM SOD 2.25 GM in D5W MINI-BAG PLUS 50 ML IV ONE (17:15)
[2020-05-11] MEDS ORDERED: NS 1,430 ML in IV 1 EA IV ONE (17:15)
[2020-05-11 17:25] VITALS: BP 80/46
[2020-05-11 17:32] LABS: ETHYL ALCOHOL (ETHANOL) < 0.003 % (0.000-0.010)
[2020-05-11 17:40] VITALS: BP 127/62
[2020-05-11] MEDS ORDERED: METO1TAB87 PO (17:44)
[2020-05-11] MEDS ORDERED: ALBU8.5H INH (17:44)
[2020-05-11] MEDS ORDERED: NITR0.4S14 SL (17:44)
[2020-05-11] MEDS ORDERED: IPRA0.00 INH (17:44)
[2020-05-11] MEDS ORDERED: CLOP75TA2 PO (17:44)
[2020-05-11] MEDS ORDERED: ASPI81TA26 PO (17:44)
[2020-05-11] MEDS ORDERED: ATOR40TA75 PO (17:44)
[2020-05-11 18:25] VITALS: BP 122/62
--- NOTE | 2020-05-11 19:13 | HPEPDOC ---
[facility] Medical History & Physical Date of Admission May 11, 2020 Date of Service: May 11, 2020 History and Physical CHIEF COMPLAINT: hemoptysis HISTORY OF PRESENT ILLNESS: 79 yo with a PMHx of CAD (s/p STEMI 05/07/20 with 3 stents to LAD at 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 Patient found to be altered and hypoxic by EMS arrived to ER on a nonrebreather, 97%. Blood pressure was 110/56 temperature 97.2, pulse 78, respiratory 18. He is opening eyes and responding to verbal still and questions simple yes or no answers, but is otherwise unable to give a full history. Majority of history was obtained from collateral records and his . Per his , patient has been having approximately 3 days of copious hematemesis, as well as dark urine and dark stools. Of note, patient suffered a STEMI on 05/07/20 and was transferred to [facility] where he underwent catheterization and stenting x 3 to LAD. Patient became more hypoxic in ER, required vapotherm (40 LPM at FiO2 50%), which improved O2 sats to 95%. Also became hypotensive, to 80/46, but responded to a 1L NS bolus, and rebounded to 127/62 mmHg. Notable labs: Hgb 6.4, hct 29. WBC 14.0. LA 4.7. Potassium 5.9. BUN 67. Cr 2.5. Trop 0.21. CK MB 12. Total CK 122. Ammonia 15. ABG 7.28, pO2 117. pCO2 bicarb 31.7. CT chest showing extensive necrotizing pneumonia in the L lower lobe, as well as a 9 cm hyperattenuating mass/opacity in L lung base posteriorly and extensive emphesymatous changes. This was discussed with Dr. Galdamez, who suspected aspiration but could not rule out a lung malignancy, and did not feel drainage was necessary. Due to severe anemia, patient started on pRBC transfusion. I spoke to Dr. Oh (GI) along with Dr. Sahni (cardiology) and Dr. Crowley (cardiology), who agree that stopping ASA/plavix during acute bleed would place him at very high risk of recurrent NH, given the 3 CELINE to LAD on 04/06/[address] [facility]. They request that patient be transferred to a cardiac cath center. PAST MEDICAL HISTORY: CAD s/p stents x 3 to LAD (mid LAD disease), 05/07/[address] 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 SOCIAL HISTORY: [place] [facility] 50+ pack years not etoh use for past 30 years FAMILY HISTORY: unable to obtain due to acute illness ALLERGIES: Please see below. REVIEW OF SYSTEMS: Performed 10 point ROS, pertinent information noted in HPI. HOME MEDICATIONS: Please see below. PHYSICAL EXAMINATION: VITAL SIGNS: please see below General: cachectic, toxic appearance, very ferail HEENT: PERRLA, EOMI, sclerae clear Neck: supple, normal ROM, no JVD Respiratory: poor air entry b/l L worse than R, rales in lung bases L > R. CVS: RRR, normal S1, S2, no murmurs Abdo: soft, no masses, no hepatosplenomegaly, BS+, no rebound tenderness Extremities: no edema, pulses 2+ MSK: no joint deformities, normal ROM Neuro: no focal neuro deficits, moving all 4 extremities, CN2-12 intact. LABORATORY DATA: See below. IMAGING: CT abdo pelvis (05/11/20): Intrarenal nephrolithiasis without hydronephrosis left kidney. Cholelithiasis. Left colonic diverticulosis. Moderate stool in the rectum and cecum. No traumatic abnormality. CT chest (05/11/20): Advanced COPD. Extensive necrotizing pneumonia is suspected in the left lower lobe. There is a 9 cm hyperattenuating masslike opacity which could be hematoma in the left lung base posteriorly. There is pre-existing is severe emphysema and emphysematous bleb formation. CXR (05/11/20): Diffuse dense infiltrate in the left lung. Possible mild infiltrate in the right lung base. Nodular density right midlung zone may represent a nipple shadow CT c-spine (05/11/20): Degenerative spondylosis changes. No fracture or other traumatic abnormality seen CT head (05/11/20): There is a focal low-density area in the left parieto-occipital region consis tent with infarction, possibly old or subacute. There is no evidence of hemorrhage or definitely acute infarct. Small-vessel changes, diffuse atrophy, and vascular calcification are also noted. MICROBIOLOGY: Please see below. ASSESSMENT: 79-year-old male with a history of COPD on 5 L at home, coronary artery disease status post CABG, long-term smoking history, brought to ER by EMS after a fall. Patient noted to have significant anemia, hemoglobin 6.1, likely secondary to copious hematemesis, as well as acute renal failure, sepsis, likely secondary to necrotizing left lower lobe pneumonia. Patient will be admitted to ICU under hospitalist service. Blood transfusion, IV fluids and broad-spectrum antibiotics have been started. PLAN: #Sepsis likely 2/2 necrotizing pneumonia with lactic acidosis #acute hypoxic and hypercapnic respiratory failure in setting of sepsis and COPD #Chronic COPD on home O2 #Coronary artery disease s/p STEMI #Acute anemia likely secondary to upper GI source - Discussed with GI (Dr. Oh) and cardio (Dr. Sahni, Dr. Crowley), recommend transfer to cardiac cath center as patient is high risk for repeat ACS once ASA/plavix are stopped (2 months s/p STEMI with CELINE to LAD x 3). Patient accepted for transfer at [facility] in [place]. I updated accepting physician Dr. Solomon) with repeat labs. LA improved. Hyperkalemia improved. Hgb increased appropriately after 1 units to 7.8. #L lower lobe necrotizing pneumonia with possible LLL 9 cm mass vs hematoma - CT imaging reviewed above - per Dr. Galdamez, no indication for chest tube, does not believe there to be a hematoma. Suspects aspiration pneumonia. Malignancy on differential. - blood cultures sent - s/p ceftriaxone, azithromycin and zosyn in ER I spoke to the patient's Mrs. Cuenca ([phone]) and updated her regarding the transfer. She agrees with the transfer. I answered all questions in detail. Vital Signs Vital Signs Date Time Temp Pulse Resp B/P (MAP) Pulse Ox O2 Delivery O2 Flow Rate FiO2 05/11/20 17:40 96.3 81 31 127/62 95 HVNI-Vapotherm 05/11/20 15:58 40.0 50 Laboratory Data Labs 24H Laboratory Tests 2 05/11/20 15:27: Immature Granulocyte % (Auto) 1.0, Neutrophils (%) (Auto) 83.7H, Lymphocytes (%) (Auto) 9.6L, Monocytes (%) (Auto) 5.6H, Eosinophils (%) (Auto) 0.0, Basophils (%) (Auto) 0.1, Neutrophils # (Auto) 11.8H, Lymphocytes # (Auto) 1.3L, Monocytes # (Auto) 0.8, Eosinophils # (Auto) 0.0, Basophils # (Auto) 0.0, Nucleated Red Blood Cells % (auto) 0.0, Prothrombin Time 14.3H, Prothromb Time International Ratio 1.09, Activated Partial Thromboplast Time 29.3, Blood Gas Bicarbonate Standard 25.6, Arterial Blood pH 7.208*L, Arterial Blood Partial Pressure CO2 76.0*H, Arterial Blood Partial Pressure O2 138.3H, Arterial Blood Total CO2 31.9H, Arterial Blood HCO3 29.6H, Arterial Blood Base Excess 1.2, Arterial Blood Oxygen Saturation 98.5, Anion Gap 4L, Glomerular Filtration Rate 23.0L, Lactic Acid Level 4.7*H, Calcium Level 8.7L, Total Bilirubin 0.7, Direct Bilirubin 0.2, Aspartate Amino Transf (AST/SGOT) 34, Alanine Aminotransferase (ALT/SGPT) 17, Alkaline Phosphatase 73, Ammonia 15, Total Creatine Kinase 122, Creatine Kinase MB 12.0H, Creatine Kinase MB Relative Index 9.84H, Troponin I 0.21H, Total Protein 5.6L, Albumin 3.2, Albumin/Globulin Ratio 1.3, Ethyl Alcohol Level < 0.003 05/11/20 16:05: POC Glucose (Misc Panel) 188H, POC Sodium (Misc Panel) 140, POC Potassium (Misc Panel) 6.1*H, POC Chloride (Misc Panel) 99, POC Total CO2 (Misc Panel) 34.0H, POC Blood Urea Nitrogen (Misc Panel 73H, POC Ionized Calcium (Misc Panel) 4.5, POC Creatinine (Misc Panel) 3.0H, POC Hematocrit (Misc Panel) 20.0L 05/11/20 17:01: POC Total CO2 (Misc Panel) 34.0H, POC pH (Misc Panel) 7.280L, POC Base Excess (Misc Panel) 5.0H, POC Saturated Percent O2 (Misc) 98, POC pO2 (Misc Panel) 117.0H, POC pCO2 (Misc Panel) 67.5*H, POC HCO3 (Misc Panel) 31.7H CBC/BMP Laboratory Tests 05/11/20 15:27 Microbiology Microbiology 05/11/20 Respiratory Virus Panel (PCR) (LONI), Received Pending 05/11/20 Blood Culture, Received Pending 05/11/20 Blood Culture, Received Pending Home Medications Scheduled Aspirin (Aspirin EC) 81 Mg Tablet.dr, 81 MG PO DAILY Atorvastatin Calcium (Atorvastatin Calcium) 40 Mg Tablet, 40 MG PO QHS Clopidogrel Bisulfate (Clopidogrel) 75 Mg Tablet, 75 MG PO DAILY Metoprolol Tartrate (Metoprolol Tartrate) 25 Mg Tablet, 25 MG PO BID Scheduled PRN Albuterol Sulfate (Albuterol Sulfate Hfa) 8.5 Gm Hfa.aer.ad, 2 PUFFS INH QID PRN for SHORTNESS OF BREATH Ipratropium/Albuterol Sulfate (Iprat-Albut 0.5-3(2.5) mg/3 ml) 3 Ml Ampul.neb, 1 VIAL INH TID PRN for SHORTNESS OF BREATH Nitroglycerin (Nitroglycerin) 0.4 Mg Tab.subl, 0.4 MG SL NITRO PRN for CHEST MELINA N Allergies Coded Allergies: doxycycline (Verified Allergy, Intermediate, HIVES, 04/06/20) A-FIB/CHADSVASC A-FIB History Current/History of A-Fib/PAF?: No Current PO Anticoag Therapy: No THOMAS HILL MD May 11, 2020 19:12
[2020-05-11 21:04] VITALS: BP 134/67
--- NOTE | 2020-05-11 21:07 | ECGEPIP ---
[facility] - ED Test Date: 2020-05-11 Pat Name: LISA MELTON Department: Room: - Gender: Male Broadcast Engineer: : [id number] Requested By: Cassandra Luz Order Number: [id number] Reading MD: Cassandra Luz Measurements Intervals Jones Rate: 93 P: 72 RI: 112 QRS: -46 QRSD: 100 T: 87 QT: 345 QTc: 430 Interpretive Statements SINUS RHYTHM WITH SHORT RI INTERVAL LEFT ANTERIOR FASCICULAR BLOCK ANTEROSEPTAL MYOCARDIAL INFARCTION 04/06/20 STEMI anterolateral Electronically Signed on 05-11-2020 21:06:54 EST by Cassandra Luz
[2020-05-11 21:19] VITALS: BP 113/57
[2020-05-11 22:04] LABS: BASO % 0.1 % (0.0-1.0); HEMATOCRIT 26.5 % (42.0-52.0); HEMOGLOBIN 7.8 g/dl (13.5-17.5); LYMPH # 0.3 10^3/uL (1.5-5.0); LYMPH % 1.4 % (24.0-44.0); MEAN CORPUSCULAR HEMOGLOBIN 29.5 pg (27.0-33.0); MEAN CORPUSCULAR HGB CONC 29.4 g/dl (32.0-36.5); MEAN CORPUSCULAR VOLUME 100.4 fl (80.0-96.0); MONO # 0.4 10^3/uL (0.0-0.8); MONO % 2.2 % (0.0-5.0); NEUTROPHILS # 17.3 10^3/uL (1.5-8.5); NEUTROPHILS % 94.6 % (36.0-66.0); PLATELET COUNT, AUTOMATED 202 10^3/uL (150-450); RED BLOOD COUNT 2.64 10^6/uL (4.30-6.10); WHITE BLOOD COUNT 18.3 10^3/uL (4.0-10.0)
[2020-05-11 22:38] LABS: CALCIUM LEVEL 7.6 MG/DL (8.8-10.2); CREATININE FOR GFR 2.53 MG/DL (0.70-1.30); GLOMERULAR FILTRATION RATE 26.4 (>42); POTASSIUM SERUM 5.6 MEQ/L (3.5-5.1); TROPONIN I 0.15 NG/ML (< 0.10)
[2020-05-12 00:15] VITALS: BP 134/72
--- NOTE | 2020-05-13 10:15 | ED PDOC ---
Post-Departure Follow-Up ct chest faxed formal report of Jim Rosenberg MD May 13, 2020 10:14
== END 2020-05-12 01:17 | disposition short-term general hospital (02) ==
LOC: M ED 14:50
DX: N17.9 Acute kidney failure, unspecified (principal); J96.90 Respiratory failure, unspecified, unspecified whether with hypoxia or hypercapnia; J18.9 Pneumonia, unspecified organism; J44.9 Chronic obstructive pulmonary disease, unspecified; D64.9 Anemia, unspecified; I25.2 Old myocardial infarction; R91.1 Solitary pulmonary nodule; I10 Essential (primary) hypertension; F17.200 Nicotine dependence, unspecified, uncomplicated; F41.9 Anxiety disorder, unspecified; Z95.818 Presence of other cardiac implants and grafts; Z88.1 Allergy status to other antibiotic agents; Z99.81 Dependence on supplemental oxygen
CPT/HCPCS: 36430; 36600; 70450; 71045; 71250; 72125; 74176; 80047; 80048; 80076; 82077; 82140; 82550; 82553; 82803; 83605; 84484; 85025; 85610; 85730; 86850; 86900; 86901; 86920; 87040; 87486; 87581; 87633; 87798; 93005; 93041; 94640; 96365; 96366; 96367; 96375; 99285; C9113; J0456; J0696; J2405; J2543; J2930; P9016